=== PATIENT | female | born 1975 | race Caucasian/White ===

== ENCOUNTER 2020-09-23 15:51 | Emergency (ER) | payer OTHER, SELFPAY ==
--- NOTE | ~2020-09-23 | XR_ITS ---
EXAMINATION: XR chest 2V DATE: 09/23/2020 16:30 INDICATION: 2 days of cough TECHNIQUE: frontal and lateral views of the chest were obtained. COMPARISON: None FINDINGS: There are at least 3 small calcified nodules in the left lung consistent with old granulomatous disea se. No other airspace opacities, pulmonary edema, pleural effusion or pneumothorax. The cardiomediast inal silhouette is normal. Visualized bones and soft tissues are unremarkable. IMPRESSION: 1. No acute cardiopulmonary disease. Reviewed, dictated and finalized at location A. [employer]
[2020-09-23 16:00] VITALS: BP 150/99; PULSE 109; RESP 18; TEMP 37.8; O2SAT 99
--- NOTE | 2020-09-23 16:12 | ED.URI ---
HPI - URI/Sore Throat General Chief Complaint: Upper Respiratory Infection Stated Complaint: chest cold Time Seen by Provider: 09/23/20 16:12 Source: patient Mode of arrival: ambulatory Limitations: no limitations History of Present Illness HPI Narrative: Esha Cliare is a 45 yo female with a PMH of tobacco abuse who comes to [facility] with complaints of productive cough fever chest pain that has been going on for the last 2 to 3 days. She took something for her fever at 11 this morning and is currently 100.1, blood pressure is elevated and she is not being treated for hypertension at this point, she says she is unable to lay down to sleep and coughs most of the time when she is sitting. She feels exhausted. She states there is no chance of Covid exposure for her as she stays with her parents and they have been isolating Related Data Allergies Allergy/AdvReac Type Severity Reaction Status Date / Time No Known Allergies Allergy Verified 09/23/20 16:16 Review of Systems Review of Systems: Narrative: CONSTITUTIONAL: Denies fever, chills, sweats. EYES: Denies visual changes, redness, discharge. ENT: Has rhinorrhea, has congestion, sore throat, otalgia. CARDIOVASCULAR: Denies chest pain, palpitations, edema. RESPIRATORY: Has dyspnea, wheezing, has cough GASTROINTESTINAL: Denies abdominal pain, nausea, vomiting, diarrhea. GENITOURINARY: Denies dysuria, hematuria, abnormal discharge SKIN: Denies rash or itching. NEUROLOGIC: Denies numbness, or focal weakness. PSYCHIATRIC: Denies anxiety or depression. [facility] Past Medical History Medical History No acute medical problems Surgical History Surgical History History of Family History Family History Other Hypertension Social History Social History Smoking packs per day: 0.5 Smoking cigarettes per day: 10.0 Years smoked: 26 Smoking pack-years: 13.00 Smoking status: Current every day smoker Tobacco type: cigarettes Comments At time of signature, I agree with nursing past medical, surgical, social and family history. There is no relevant family history pertinent to the presenting complaint. Exam Narrative: Exam Narrative: GENERAL: This is a well-nourished, well-developed patient, in moderate distress. HEAD: normocephalic, atraumatic. EYES: Sclera clear/white. Vision is grossly intact. EARS: External ears normal, auditory canals erythematous and without drainage, TMs have fluid behind them without perforation. Hearing grossly intact. NOSE: External nose normal without nasal discharge, nares with redness, has rhinorrhea. THROAT: Mucous membranes moist, posterior pharynx erythematous appears to have a large amount of drainage in the back of the throat NECK: Neck supple, CARDIOVASCULAR: Tachycardic rate and rhythm without murmurs, gallops, or rubs. RESPIRATORY: Coarse to auscultation. Breath sounds equal bilaterally. No wheezes, rales, or rhonchi. Wheezy cough GASTROINTESTINAL: Abdomen soft, , SKIN: warm, intact with no suspicious lesions or rash, good texture and turgor. NEURO: awake, alert, and oriented to person, place and time. There were no obvious focal neurologic abnormalities. Steady gait EXTREMITIES: Normal range of motion. BACK: Nontender without deformity Course Course Emergency Course: Patient came to express care complaining of 4 days of sinus drainage productive cough fever Strep negative, flu negative , chest [id number] no acute cardiopulmonary disease Reevaluation(s) Date: 09/23/20 Time: 16:27 Reevaluation #2: Patient continues to have productive cough with wheezing will start on steroids,albuterol, antibiotic Vital Signs Vital signs: Vital Signs Temperature 100.1 F H 09/23/20 16:00 Pulse Rate
== END 2020-09-23 17:22 | disposition home or self-care (01) ==
PROVIDERS: Emergency Provider Nurse Practitioner
DX: J40 Bronchitis, not specified as acute or chronic (principal); F17.210 Nicotine dependence, cigarettes, uncomplicated
CPT/HCPCS: 71046; 87081; 87804; 87880; 99213; G0463

== ENCOUNTER 2021-02-06 15:04 | Emergency (ER) | payer OTHER, SELFPAY ==
[2021-02-06 15:09] VITALS: BP 148/82; PULSE 124; RESP 16; TEMP 36.7; O2SAT 96
--- NOTE | 2021-02-06 15:12 | ED.URI ---
HPI - URI/Sore Throat General Chief Complaint: Upper Respiratory Infection Stated Complaint: Congestion Time Seen by Provider: 02/06/21 15:12 Source: patient and RN notes reviewed History of Present Illness HPI Narrative: Patient is a 45-year-old female who presents the urgent care with complaints of productive cough, mild chest congestion, left ear pain and low-grade fever. Patient states that started yesterday and the temperature was earlier this morning. Patient has taken ibuprofen and does use inhalers as needed for the cough. Patient states that she has a history of bronchitis and is a pack-a-day smoker. Patient denies of any known exposure to Covid. No other acute complaints. No acute distress noted. Patient aware of the plan of care. Some parts of this dictation were generated by voice recognition software and may contain typographical and/or grammatical inaccuracies. Related Data Allergies Allergy/AdvReac Type Severity Reaction Status Date / Time codeine Allergy Hives Verified 02/06/21 15:18 naproxen [From Aleve] Allergy Hives Verified 02/06/21 15:18 Review of Systems Review of Systems: Narrative: CONSTITUTIONAL: Denies fever, chills, or sweats. EYES: Denies visual changes, redness, or discharge. ENT: Reports of left otalgia, rhinorrhea CARDIOVASCULAR: Denies chest pain, palpitations, or edema. RESPIRATORY: Reports productive cough and chest congestion without dyspnea GASTROINTESTINAL: Denies abdominal pain, nausea, vomiting, or diarrhea. GENITOURINARY: Denies dysuria or hematuria. SKIN: Denies rash or itching. MUSCULOSKELETAL: Denies back pain, joint pain, or myalgia. NEUROLOGIC: Denies headache, numbness, or weakness. All other systems reviewed are negative, except as documented in HPI. REPLACED BY [facility] Past Medical History Medical History No acute medical problems Surgical History Surgical History History of Family History Family History Other Hypertension Social History Social History Smoking packs per day: 0.5 Smoking cigarettes per day: 10.0 Years smoked: 26 Smoking pack-years: 13.00 Smoking status: Current every day smoker Tobacco type: cigarettes Comments At the time of my signature, I reviewed and agree with the nursing past medical, surgical, social, and family history. There is no relevant family history pertinent to the patient complaint. Exam Narrative: Exam Narrative: GENERAL: This is a well-nourished, well-developed patient, in no apparent distress. HEAD: normocephalic, atraumatic. EYES: PERRL. Sclera clear/white. Vision is grossly intact. EARS: External ears normal, auditory canals clear and without drainage, mild fluid noted behind left TM without otitis, TMs normal without perforation. Hearing grossly intact. NOSE: External nose normal with no obvious nasal discharge, nares without redness, no rhinorrhea. THROAT: Mucous membranes moist, posterior pharynx clear. Moderate postnasal drainage NECK: Neck supple, non-tender without lymphadenopathy, masses or thyromegaly. CARDIOVASCULAR: Regular rate and rhythm without murmurs, gallops, or rubs. RESPIRATORY: Mild expiratory wheezes, cleared with cough. Breath sounds equal bilaterally. SKIN: warm, intact with no suspicious lesions or rash, good texture and turgor. NEURO: awake, alert, and oriented to person, place and time. There were no obvious focal neurologic abnormalities. EXTREMITIES: No clubbing, cyanosis, or edema. Course Vital Signs Vital signs: Vital Signs Temperature 98.1 F 02/06/21 15:09 Pulse Rate 124 H 02/06/21 15:09 Respiratory Rate 16 02/06/21 15:09 Blood Pressure 148/82 H 02/06/21 15:09 Pulse Oximetry 96 02/06/21 15:09 Temperature 98.1 F 02/06/21 15:09 Pulse Rate 124 H
== END 2021-02-06 15:34 | disposition home or self-care (01) ==
PROVIDERS: Emergency Provider Nurse Practitioner Family
DX: J40 Bronchitis, not specified as acute or chronic (principal); F17.210 Nicotine dependence, cigarettes, uncomplicated
CPT/HCPCS: 99213; G0463

== ENCOUNTER 2021-09-20 13:55 | Emergency (ER) | payer OTHER, SELFPAY ==
[2021-09-20 14:19] VITALS: BP 131/80; PULSE 109; RESP 16; TEMP 37; O2SAT 96
--- NOTE | 2021-09-20 15:37 | ED.URI ---
HPI - URI/Sore Throat General Chief Complaint: Upper Respiratory Infection Stated Complaint: chest congestion cough Time Seen by Provider: 09/20/21 15:37 Source: patient and RN notes reviewed Mode of arrival: ambulatory Limitations: no limitations History of Present Illness HPI Narrative: 46-year-old female who presents to [facility] care with complaints of sinus pain and pressure,sore throat, headache, cough, ear pressure with cough with upper chest burning for the past 2 days. Patient states that she has been COVID and flu vaccinated with no feelings of chills sweats or body aches or any acute dyspnea. Patient has been taking Tylenol for her symptoms.Patient describes burning in upper chest especially with cough rates discomfort as 7/10.Patient has long history of tobacco abuse. Related Data Allergies Allergy/AdvReac Type Severity Reaction Status Date / Time azithromycin [From Zithromax] Allergy Intermediate Hives Verified 09/20/21 14:45 codeine Allergy Intermediate Hives Verified 09/20/21 14:45 naproxen [From Aleve] Allergy Intermediate Hives Verified 09/20/21 14:45 Review of Systems Review of Systems: CONSTITUTIONAL: Denies fever, chills, or sweats. EYES: Denies visual changes, redness, or discharge. ENT: positive for rhinorrhea, congestion, sore throat, ear pressure CARDIOVASCULAR: Denies chest pain, palpitations, or edema. RESPIRATORY: positive cough with upper chest burning denies dyspnea. GASTROINTESTINAL: Denies abdominal pain, nausea, vomiting, or diarrhea. GENITOURINARY: Denies dysuria or hematuria. SKIN: Denies rash or itching. MUSCULOSKELETAL: Denies back pain, joint pain, or myalgia. NEUROLOGIC: Positive headache, no numbness, or weakness. PSYCHIATRIC: Denies anxiety or depression. All systems reviewed & are unremarkable except as noted in HPI and below PMFSH Past Medical History Medical History (Updated 09/22/21 @ 14:09 by Yeimy Gillette NP) Bronchitis Pneumonia Surgical History Surgical History History of Family History Family History Other Hypertension Social History Social History Smoking packs per day: 0.5 Smoking cigarettes per day: 10.0 Years smoked: 26 Smoking pack-years: 13.00 Smoking status: Current every day smoker Tobacco type: cigarettes Comments At time of signature, agree with nursing past medical, surgical, social and family history. There is no relevant family history pertinent to the presenting complaint Exam Narrative: GENERAL: Well-appearing, well-nourished, and in no acute distress. HEAD: Normocephalic, atraumatic. EYES: PERRLA and EOMI. ENT: Nares patent with clear rhinorrhea no epistaxis. Mucous membranes moist. TMs normal with good light reflex, throat mild red with no lesions or exudates, no tonsil enlargement with post nasal drainage. NECK: Supple.no lymphadenopathy CHEST: Clear to auscultation. No respiratory distress,.productive cough, SAO2 96% on room air HEART: Regular rate and rhythm. No murmur heard. Normal peripheral pulses. ABDOMEN: Soft, nontender, nondistended, normal active bowel sounds. EXTREMITIES: Normal range of motion. No edema. SKIN: Warm, dry, no rash. NEURO: No focal deficits. Alert and oriented x3. Course Vital Signs Vital signs: Vital Signs Temperature 37.0 C 09/20/21 14:19 Pulse Rate 109 H 09/20/21 14:19 Respiratory Rate 16 09/20/21 14:19 Blood Pressure 131/80 09/20/21 14:19 Pulse Oximetry 96 09/20/21 14:19 Temperature 37.0 C 09/20/21 14:19 Pulse Rate 109 H 09/20/21 14:19 Respiratory Rate 16 09/20/21 14:19 Blood Pressure 131/80 09/20/21 14:19 Pulse Oximetry 96 09/20/21 14:19 MDM - URI/Sore Throat Differential Diagnosis Differential diagnosis: Likely upper respiratory infection, sinusitis, bronchitis and other (acute c
== END 2021-09-20 15:55 | disposition home or self-care (01) ==
PROVIDERS: Emergency Provider Registered Nurse; PCP Nurse Practitioner Family
DX: J06.9 Acute upper respiratory infection, unspecified (principal); F17.210 Nicotine dependence, cigarettes, uncomplicated
CPT/HCPCS: 99213; G0463

== ENCOUNTER 2022-03-10 08:01 | Emergency (ER) | payer OTHER, SELFPAY ==
--- NOTE | 2022-03-10 08:04 | ED.URI ---
HPI - URI/Sore Throat General Chief Complaint: Upper Respiratory Infection Stated Complaint: Congestion/Cough Time Seen by Provider: 03/10/22 08:04 Source: patient and RN notes reviewed History of Present Illness HPI Narrative: Patient is a 46-year-old female who presents the urgent care with complaints of cough and congestion. Patient states her cough has been productive in the mornings. Patient denies of any ill exposures. States that she has been running a temperature of 99 and has been taking Tylenol and a daily allergy medication. Denies of any shortness of breath, chest pain, nausea or vomiting. No other acute complaints. No acute distress noted. Patient aware of the plan of care. Some parts of this dictation were generated by voice recognition software and may contain typographical and/or grammatical inaccuracies. Related Data Allergies Allergy/AdvReac Type Severity Reaction Status Date / Time azithromycin [From Zithromax] Allergy Intermediate Hives Verified 03/10/22 08:12 codeine Allergy Intermediate Hives Verified 03/10/22 08:12 naproxen [From Aleve] Allergy Intermediate Hives Verified 03/10/22 08:12 Review of Systems Review of Systems: CONSTITUTIONAL: Denies fever, chills, or sweats. EYES: Denies visual changes, redness, or discharge. ENT: Denies rhinorrhea, congestion, sore throat, or otalgia. CARDIOVASCULAR: Denies chest pain, palpitations, or edema. RESPIRATORY: Reports a productive cough and chest congestion without dyspnea GASTROINTESTINAL: Denies abdominal pain, nausea, vomiting, or diarrhea. GENITOURINARY: Denies dysuria or hematuria. SKIN: Denies rash or itching. MUSCULOSKELETAL: Denies back pain, joint pain, or myalgia. NEUROLOGIC: Denies headache, numbness, or weakness. All other systems reviewed are negative, except as documented in HPI. [facility] Past Medical History Medical History (Updated 03/10/22 @ 08:29 by GARY Momin) Bronchitis Pneumonia Surgical History Surgical History History of Family History Family History Other Hypertension Social History Social History Smoking packs per day: 0.5 Smoking cigarettes per day: 10.0 Years smoked: 26 Smoking pack-years: 13.00 Smoking status: Current every day smoker Tobacco type: cigarettes Comments At the time of my signature, I reviewed and agree with the nursing past medical, surgical, social, and family history. There is no relevant family history pertinent to the patient complaint. Exam Narrative: GENERAL: This is a well-nourished, well-developed patient, in no apparent distress. HEAD: normocephalic, atraumatic. EYES: PERRL. Sclera clear/white. Vision is grossly intact. EARS: External ears normal, auditory canals clear and without drainage, TMs normal without perforation. Hearing grossly intact. NOSE: External nose normal with no obvious nasal discharge, nares without redness, clear rhinorrhea. THROAT: Mucous membranes moist, posterior pharynx clear. Moderate postnasal drainage NECK: Neck supple CARDIOVASCULAR: Regular rate and rhythm without murmurs, gallops, or rubs. RESPIRATORY: Clear to auscultation. Breath sounds equal bilaterally. No wheezes, rales, or rhonchi. SKIN: warm, intact with no suspicious lesions or rash, good texture and turgor. NEURO: awake, alert, and oriented to person, place and time. There were no obvious focal neurologic abnormalities. EXTREMITIES: No clubbing, cyanosis, or edema. Course Course Level of Care: Express Care Visit Vital Signs Vital signs: Vital Signs Temperature 98.9 F 03/10/22 08:06 Pulse Rate 118 H 03/10/22 08:06 Respiratory Rate 20 03/10/22 08:06 Blood Pressure 176/85 H 03/10/22 08:06 Pulse Oximetry 98 03/10/22 08:06 Temperature 98.9 F 03/10/22 08:16 Pulse Rate 118 H 03/10
[2022-03-10 08:06] VITALS: BP 176/85; PULSE 118; RESP 20; TEMP 37.2; O2SAT 98
[2022-03-10 08:16] VITALS: BP 176/85; PULSE 118; RESP 20; TEMP 37.2; O2SAT 98
== END 2022-03-10 08:41 | disposition home or self-care (01) ==
PROVIDERS: Emergency Provider Nurse Practitioner Family
DX: J06.9 Acute upper respiratory infection, unspecified (principal); F17.210 Nicotine dependence, cigarettes, uncomplicated
CPT/HCPCS: 99211; G0463

== ENCOUNTER 2022-08-21 08:02 | Emergency (ER) | payer OTHER, SELFPAY ==
--- NOTE | 2022-08-21 08:07 | ED.URI ---
HPI - URI/Sore Throat General Chief Complaint: Upper Respiratory Infection Stated Complaint: Congestion/Fever Time Seen by Provider: 08/21/22 08:25 Source: patient and RN notes reviewed Mode of arrival: ambulatory Limitations: no limitations History of Present Illness HPI Narrative: 47-year-old female presents with concern for chills and body aches, headache, cough, fevers, chest and nasal congestion. She reports she had, test that negative yesterday. MD elicited complaint: cough and sore throat Related Data Allergies Allergy/AdvReac Type Severity Reaction Status Date / Time azithromycin [From Zithromax] Allergy Intermediate Hives Verified 03/10/22 08:12 codeine Allergy Intermediate Hives Verified 03/10/22 08:12 naproxen [From Aleve] Allergy Intermediate Hives Verified 03/10/22 08:12 Review of Systems Review of Systems: CONSTITUTIONAL: Reports malaise, chills, sweats, fever. EYES: Denies visual changes, redness, or discharge. ENT: Reports rhinorrhea, congestion. Denies sinus pain, otalgia and sore throat. CARDIOVASCULAR: Denies chest pain, palpitations, or edema. RESPIRATORY: Reports cough and chest congestion. Denies dyspnea. GASTROINTESTINAL: Denies abdominal pain, nausea, vomiting, diarrhea SKIN: Denies rash or itching. MUSCULOSKELETAL: Reports myalgia. NEUROLOGIC: Reports headache. All systems reviewed & are unremarkable except as noted in HPI and below PMFSH Past Medical History Medical History (Updated 08/21/22 @ 08:36 by Carito Velasquez NP) Bronchitis Pneumonia Surgical History Surgical History History of Family History Family History Other Hypertension Social History Social History Smoking packs per day: 0.5 Smoking cigarettes per day: 10.0 Years smoked: 26 Smoking pack-years: 13.00 Smoking status: Current every day smoker Tobacco type: cigarettes Comments At time of signature, agree with nursing past medical, surgical, social and family history. There is no relevant family history pertinent to the presenting complaint Exam Narrative: GENERAL: Nontoxic appearing, And in no acute distress. HEAD: Normocephalic EYES: PERRLA, conjunctivae clear ENT: Nares clear, turbinates edematous and erythematous, clear discharge. Mucous membranes moist. TM pearly foster with dull light reflex bilaterally; no tragal tenderness. Oropharynx not erythematous without lesions. Tonsils not enlarged and without exudate, no drooling, no hoarseness, no trismus, uvula midline. NECK: Supple. No lymphadenopathy CHEST: Clear to auscultation, breath sounds equal. No wheezing, rhonchi, rales, or stridor. No respiratory distress, speaks in full sentences. Cough noted HEART: Regular rate and rhythm. No murmur heard. SKIN: Warm, dry, no rash. NEURO: Alert and oriented x3. PSYCH: Normal mood and affect Course Course Emergency Course: Patient is aware of diagnosis, understands and agrees to treatment plan. Anticipatory guidance given. Patient agrees to follow-up as directed and is aware of reasons to seek care at the emergency department. Portions of this record may have been created with voice recognition software Level of Care: Express Care Visit Vital Signs Vital signs: Vital Signs Pulse Rate 119 H 08/21/22 08:11 Respiratory Rate 14 08/21/22 08:11 Blood Pressure 157/85 H 08/21/22 08:11 Pulse Oximetry 96 08/21/22 08:11 Oxygen Delivery Room Air 08/21/22 08:11 Pulse Rate 119 H 08/21/22 08:16 Respiratory Rate 14 08/21/22 08:16 Blood Pressure 157/85 H 08/21/22 08:16 Pulse Oximetry 96 08/21/22 08:16 Oxygen Delivery Room Air 08/21/22 08:16 Reviewed. MDM - URI/Sore Throat MDM Narrative Medical decision making narrative: Differential diagnosis considered: [place] virus, strep pharyngitis, allergic rhi
[2022-08-21 08:11] VITALS: BP 157/85; PULSE 119; RESP 14; O2SAT 96
[2022-08-21 08:16] VITALS: BP 157/85; PULSE 119; RESP 14; O2SAT 96
== END 2022-08-21 08:45 | disposition home or self-care (01) ==
PROVIDERS: Emergency Provider Nurse Practitioner
DX: J10.1 Influenza due to other identified influenza virus with other respiratory manifestations (principal); Z20.822 Contact with and (suspected) exposure to COVID-19; F17.219 Nicotine dependence, cigarettes, with unspecified nicotine-induced disorders
CPT/HCPCS: 87426; 87804; 99213; C9803; G0463

== ENCOUNTER 2023-03-04 08:03 | Emergency (ER) | payer OTHER, SELFPAY ==
--- NOTE | 2023-03-04 08:11 | ED.DENTAL ---
HPI - Dental/Oral General Chief complaint: Dental/Oral Stated complaint: Facial Swelling Time Seen by Provider: 03/04/23 08:11 Source: patient Mode of arrival: ambulatory Limitations: no limitations History of Present Illness HPI Narrative: 47-year-old female presents with complaint of left upper dental pain for 4 days. Reports facial swelling for 3 days. Afebrile. Reports that she is trying to make an appointment with [facility] but they have not called her back. Taking ibuprofen for pain. No other complaints today. All systems reviewed and negative except as above. Related Data Allergies Allergy/AdvReac Type Severity Reaction Status Date / Time azithromycin [From Zithromax] Allergy Intermediate Hives Verified 03/04/23 08:16 codeine Allergy Intermediate Hives Verified 03/04/23 08:16 naproxen [From Aleve] Allergy Intermediate Hives Verified 03/04/23 08:16 Review of Systems Review of Systems: CONSTITUTIONAL: Denies fever, chills, or sweats. EYES: Denies visual changes, redness, or discharge. ENT: Denies rhinorrhea, congestion, sore throat, or otalgia. Reports left upper dental pain. CARDIOVASCULAR: Denies chest pain, palpitations, or edema. RESPIRATORY: Denies cough or dyspnea. GASTROINTESTINAL: Denies abdominal pain, nausea, vomiting, or diarrhea. GENITOURINARY: Denies dysuria or hematuria. SKIN: Denies rash or itching. MUSCULOSKELETAL: Denies back pain, joint pain, or myalgia. NEUROLOGIC: Denies headache, numbness, or weakness. PSYCHIATRIC: Denies anxiety or depression. All other systems reviewed are negative, except as documented in HPI. [facility] Past Medical History Medical History (Updated 03/04/23 @ 08:18 by Katherine Bee NP) Bronchitis Pneumonia Surgical History Surgical History History of Family History Family History Other Hypertension Social History Social History Smoking packs per day: 0.5 Smoking cigarettes per day: 10.0 Years smoked: 26 Smoking pack-years: 13.00 Smoking status: Current every day smoker Tobacco type: cigarettes Comments At time of signature, agree with nursing past medical, surgical, social and family history. There is no relevant family history pertinent to the presenting complaint. Exam Narrative: GENERAL: This is a well-nourished, well-developed patient, in no apparent distress. HEAD: normocephalic, atraumatic. EYES: PERRL. Sclera clear/white. Vision is grossly intact. EARS: External ears normal NOSE: External nose normal MOUTH: swelling and tenderness to L upper gum, tooth #14 which has a crown. poor dentition. multiple missing teeth. other teeth decayed and broken down to gumline. NECK: Neck supple, non-tender without lymphadenopathy, masses or thyromegaly. CARDIOVASCULAR: Regular rate and rhythm without murmurs, gallops, or rubs. RESPIRATORY: Clear to auscultation. Breath sounds equal bilaterally. No wheezes, rales, or rhonchi. SKIN: warm, Dry, intact with no suspicious lesions or rash, good texture and turgor. NEURO: awake, alert, and oriented to person, place and time. There were no obvious focal neurologic abnormalities. EXTREMITIES: No joint tenderness, effusion, or edema noted. Course Course Level of Care: Express Care Visit Vital Signs Vital signs: Vital Signs Temperature 35.5 C L 03/04/23 08:12 Pulse Rate 81 03/04/23 08:12 Respiratory Rate 16 03/04/23 08:12 Blood Pressure 151/100 H 03/04/23 08:12 Pulse Oximetry 96 03/04/23 08:12 Oxygen Delivery Room Air 03/04/23 08:12 Temperature 35.5 C L 03/04/23 08:12 Pulse Rate 81 03/04/23 08:12 Respiratory Rate 16 03/04/23 08:12 Blood Pressure 151/100 H 03/04/23 08:12 Pulse Oximetry 96 03/04/23 08:12 Oxygen Delivery Room Air 03/04/23 08:12 reviewed
[2023-03-04 08:12] VITALS: BP 151/100; PULSE 81; RESP 16; TEMP 35.5; O2SAT 96
== END 2023-03-04 08:20 | disposition home or self-care (01) ==
PROVIDERS: Emergency Provider Nurse Practitioner Family
DX: K04.7 Periapical abscess without sinus (principal); F17.210 Nicotine dependence, cigarettes, uncomplicated
CPT/HCPCS: 99213; G0463

== ENCOUNTER 2024-02-14 09:54 | Emergency (ER) | payer MEDICAID, SELFPAY ==
[2024-02-14 09:58] VITALS: BP 177/84; PULSE 87; RESP 16; TEMP 36.2; O2SAT 97
--- NOTE | 2024-02-14 09:59 | ED.DENTAL ---
HPI - Dental/Oral General Chief complaint: Dental/Oral Stated complaint: Toothache History of Present Illness HPI Narrative: NO FEVER. NO JAW SWELLING. NO NECK SWELLING. NO LIMITATION WITH SPEAKING OR SWALLOWING. HAS A HISTORY OF DENTAL CARIES. HAS NOT SEEN A DENTIST RECENTLY. Related Data Home Medications Medication Instructions Recorded Confirmed atorvastatin 40 mg tablet mg 02/14/24 losartan 25 mg tablet mg 02/14/24 Allergies Allergy/AdvReac Type Severity Reaction Status Date / Time azithromycin [From Zithromax] Allergy Intermediate Hives Verified 03/04/23 08:16 codeine Allergy Intermediate Hives Verified 03/04/23 08:16 naproxen [From Aleve] Allergy Intermediate Hives Verified 03/04/23 08:16 Review of Systems Review of Systems: CONSTITUTIONAL: Denies fever, chills, or sweats. EYES: Denies visual changes, redness, or discharge. ENT: Denies rhinorrhea, congestion, sore throat, or otalgia. NO FEVER. NO JAW SWELLING. NO NECK SWELLING. NO LIMITATION WITH SPEAKING OR SWALLOWING. HAS A HISTORY OF DENTAL CARIES. HAS NOT SEEN A DENTIST RECENTLY. CARDIOVASCULAR: Denies chest pain, palpitations, or edema. RESPIRATORY: Denies cough or dyspnea. GASTROINTESTINAL: Denies abdominal pain, nausea, vomiting, or diarrhea. GENITOURINARY: Denies dysuria or hematuria. SKIN: Denies rash or itching. MUSCULOSKELETAL: Denies back pain, joint pain, or myalgia. NEUROLOGIC: Denies headache, numbness, or weakness. PSYCHIATRIC: Denies anxiety or depression. FOR[facility]LY [facility] Past Medical History Medical History (Updated 02/14/24 @ 10:06 by GARY Rosales) Bronchitis Pneumonia Surgical History Surgical History History of Family History Family History Other Hypertension Social History Social History Smoking packs per day: 0.5 Smoking cigarettes per day: 10.0 Years smoked: 26 Smoking pack-years: 13.00 Smoking status: Current every day smoker Tobacco type: cigarettes Comments At time of signature, agree with nursing past medical, surgical, social and family history. There is no relevant family history pertinent to the presenting complaint Exam Narrative: NO REAGAN APICAL SWELLING, TOOTH TENDER TO PALPATION. NO FACIAL SWELLING. NO TRISMUS. ABLE TO OPEN MOUTH FULLY. NO NECK SWELLING OR SUSHMA'S ANGINA. NO ABSCESS TO BE DRAINED. Left lower tooth # 19 no drooling, trismus, facial asymmetry or significant neck swelling GENERAL: Well-appearing, well-nourished, and in no acute distress. HEAD: Normocephalic, atraumatic. EYES: PERRLA and EOMI. ENT: Nares clear, no rhinorrhea or epistaxis. Mucous membranes moist. NECK: Supple. CHEST: Clear to auscultation. No respiratory distress. HEART: Regular rate and rhythm. No murmur heard. Normal peripheral pulses. ABDOMEN: Soft, nontender, nondistended, normal active bowel sounds. EXTREMITIES: Normal range of motion. No edema. SKIN: Warm, dry, no rash. NEURO: No focal deficits. Alert and oriented x3. [place] Coma Scale Eye Opening: Spontaneous 4 [place] Coma Scale Motor: Obeys Commands 6 Surinder Coma Scale Verbal: Oriented 5 [place] Coma Scale Total 15 Course Course Level of Care: Express Care Visit Vital Signs Vital signs: Please CARLOS schedule a followup visit with your personal physician for further evaluation and treatment. Including recheck and discussion of your blood pressure. If your symptoms persist, change or worsen significantly before you can contact your personal physician then please, without delay, go to the emergency department for further evaluation Discharge Plan Discharge Clinical Impression: Toothache, Dental caries, Dental abscess, Gingivitis Patient Disposition: Home, Self-Care Condition: Stable Instructions: Antibiotic Form Additional Instructions: Avoid
== END 2024-02-14 10:10 | disposition home or self-care (01) ==
PROVIDERS: Emergency Provider Nurse Practitioner Family; PCP Family Medicine
DX: K02.9 Dental caries, unspecified (principal); K04.7 Periapical abscess without sinus; K05.10 Chronic gingivitis, plaque induced; F17.210 Nicotine dependence, cigarettes, uncomplicated
CPT/HCPCS: 99213; G0463

== ENCOUNTER 2024-07-16 14:11 | Emergency (ER) | payer OTHER, SELFPAY ==
[2024-07-16 14:16] VITALS: BP 164/78; PULSE 94; RESP 16; TEMP 36.6; O2SAT 95
--- NOTE | 2024-07-16 14:24 | ED.URI ---
HPI - URI/Sore Throat General Chief Complaint: Upper Respiratory Infection Stated Complaint: Chest Congestion/Cough Time Seen by Provider: 07/16/24 14:24 Source: patient, RN notes reviewed and old records reviewed Mode of arrival: ambulatory Limitations: no limitations History of Present Illness HPI Narrative: 49 year old female who presents to [facility] care with complaints of 2 day history of productive cough which evans in her chest. Patient reports that her cough has increased and she is now expectorating some greenish mucous. Patient reports history of tobacco abuse of 20 years at 1 pack per day and past history of bronchitis.Patient reports that she as been taking Gabbie D and Tussin cough medication. MD elicited complaint: cough and other (burning in chest ) Pertinent past history: other (tobacco abuse and bronchitis) Onset (ago): day(s) (2) Severity: moderate Pain scale (0-10): 5 Description of mucous: clear and green Able to tolerate fluids by mouth: Yes Treatments prior to arrival: other (Gabbie D and Tussin Cough syrup) Related Data Home Medications Medication Instructions Recorded Confirmed atorvastatin 40 mg tablet mg 02/14/24 rosuvastatin 20 mg tablet mg 07/16/24 Allergies Allergy/AdvReac Type Severity Reaction Status Date / Time azithromycin [From Zithromax] Allergy Intermediate Hives Verified 07/16/24 14:17 codeine Allergy Intermediate Hives Verified 07/16/24 14:17 naproxen [From Aleve] Allergy Intermediate Hives Verified 07/16/24 14:17 Review of Systems Review of Systems: CONSTITUTIONAL: Denies malaise, chills, sweats, or fever. EYES: Denies visual changes, redness, or discharge. ENT: Reports rhinorrhea, congestion, sinus pain,no otalgia and no sore throat. CARDIOVASCULAR: Denies chest pain, palpitations, or edema.burning in chest with cough RESPIRATORY: Reports productive cough.? Denies acute dyspnea. GASTROINTESTINAL: Denies abdominal pain, nausea, vomiting, diarrhea SKIN: Denies rash or itching. MUSCULOSKELETAL: Denies myalgia. NEUROLOGIC: Denies headache. All systems reviewed & are unremarkable except as noted in HPI and below PMFSH Past Medical History Medical History (Updated 07/17/24 @ 08:14 by Yeimy Gillette NP) Bronchitis Hyperlipidemia Hypertension Pneumonia Surgical History Surgical History (Updated 07/17/24 @ 08:14 by Yeimy Gillette NP) H/O tubal ligation History of x3 Family History Family History Other Hypertension Social History Social History (Updated 07/17/24 @ 08:15 by Yeimy Gillette NP) Smoking packs per day: 0.5 Smoking cigarettes per day: 10.0 Years smoked: 26 Smoking pack-years: 13.00 Smoking status: Current every day smoker Tobacco type: cigarettes Alcohol intake: never Substance use: never Living arrangements: with family Gender identity (if verbalized by the patient): Female Comments At time of signature, agree with nursing past medical, surgical, social and family history. There is no relevant family history pertinent to the presenting complaint Exam Narrative: GENERAL: Well-appearing, well-nourished, and in no acute distress. HEAD: Normocephalic EYES: PERRLA, conjunctivae clear ENT: Nares clear, turbinates edematous and erythematous, clear discharge, sinus pressure. Mucous membranes moist. TM pearly foster with dull light reflex bilaterally; no tragal tenderness. Oropharynx erythematous without lesions. Tonsils not enlarged and without exudate, no drooling, no hoarseness, no trismus, uvula midline.post nasal drainage NECK: Supple. No lymphadenopathy CHEST: Scattered wheezing, breath sounds equal. Positive for wheezing, rhonchi, rales, or stridor. No respiratory distress, speaks in full sentences.SAO2 95% HEART: Regular rate and rhythm. No murmur heard. SKIN: Warm, dry, no rash. NEURO: Alert and oriented x3. PSY
== END 2024-07-16 14:39 | disposition home or self-care (01) ==
PROVIDERS: Emergency Provider Registered Nurse; PCP Family Medicine
DX: J40 Bronchitis, not specified as acute or chronic (principal); F17.210 Nicotine dependence, cigarettes, uncomplicated; E78.5 Hyperlipidemia, unspecified; I10 Essential (primary) hypertension
CPT/HCPCS: 99213; G0463

== ENCOUNTER 2024-07-30 14:11 | Emergency (ER) | payer OTHER, SELFPAY ==
[2024-07-30 14:14] VITALS: BP 170/90; PULSE 80; RESP 16; TEMP 36.9; O2SAT 97
--- NOTE | 2024-07-30 14:35 | ED.DENTAL ---
HPI - Dental/Oral General Chief complaint: Dental/Oral Stated complaint: Toothache Source: patient Mode of arrival: ambulatory History of Present Illness HPI Narrative: 49 y/o female presented for c/o right upper dental pain. Onset yesterday. Reports mild right cheek swelling and tenderness. Endorses a history of poor dentition throughout and is pending a full extraction. Was seen at the dentist 07/27, did not have pain at that time. Taking tylenol and ibuprofen and using liquid pain relief. Denies n/v/d/f/c. Complaint: tooth pain Related Data Home Medications Medication Instructions Recorded Confirmed rosuvastatin 20 mg tablet mg 07/16/24 losartan 25 mg tablet mg 07/30/24 07/30/24 Allergies Allergy/AdvReac Type Severity Reaction Status Date / Time azithromycin [From Zithromax] Allergy Intermediate Hives Verified 07/30/24 14:15 codeine Allergy Intermediate Hives Verified 07/30/24 14:15 naproxen [From Aleve] Allergy Intermediate Hives Verified 07/30/24 14:15 Review of Systems Review of Systems: CONSTITUTIONAL: Denies body aches, fever, chills ENT: Denies rhinorrhea, congestion, sore throat, or otalgia. Reports dental pain CARDIOVASCULAR: Denies chest pain, palpitations RESPIRATORY: Denies cough or dyspnea. SKIN: Denies rash, itching, or wounds. MUSCULOSKELETAL: Denies myalgia. NEUROLOGIC: Denies headache, numbness, tingling, or weakness. PMFSH Past Medical History Medical History Bronchitis Hyperlipidemia Hypertension Pneumonia Surgical History Surgical History H/O tubal ligation History of x3 Family History Family History Other Hypertension Social History Social History Smoking packs per day: 0.5 Smoking cigarettes per day: 10.0 Years smoked: 26 Smoking pack-years: 13.00 Smoking status: Current every day smoker Tobacco type: cigarettes Alcohol intake: never Substance use: never Living arrangements: with family Gender identity (if verbalized by the patient): Female Comments At time of signature, I have reviewed and agree with nursing past medical, surgical, social and family history unless otherwise noted. Please see nursing chart for further information. There is no relevant family history pertinent to the presenting complaint Exam Narrative: GENERAL: Appears in pain; no acute distress. HEAD: Normocephalic, atraumatic. EYES: EOMI. No redness or drainage. Conjunctivae normal. ENT: Dental pain location of #7 surrounding gum erythema and swelling, white flat pustule. Minimal right cheek swelling, tender. Mucous membranes pink and moist. TMs normal bilaterally. Throat normal. no dysphagia, odynophagia, dysphonia, or dyspnea. No uvular deviation or soft palate edema. NECK: Normal AROM. No lymphadenopathy. no induration below mandible, no neck pain. CHEST: No respiratory distress. Clear to auscultation. HEART: Regular rate and rhythm. SKIN: Warm, dry, Normal skin turgor. NEURO: No focal deficits. Alert and oriented x3. Gait steady. Course Course Emergency Course: Patient is aware of diagnosis, understands and agrees to treatment plan. Anticipatory guidance given. Patient agrees to follow-up as directed and is aware of reasons to seek care at the emergency department. Portions of this record may have been created with voice recognition software Level of Care: Express Care Visit Vital Signs Vital signs: Vital Signs Temperature 98.5 F 07/30/24 14:14 Pulse Rate 80 07/30/24 14:14 Respiratory Rate 16 07/30/24 14:14 Blood Pressure 170/90 H 07/30/24 14:14 Pulse Oximetry 97 07/30/24 14:14 Oxygen Delivery Room Air 07/30/24 14:14 Temperature 98.5 F 07/30/24 14:14 Pulse Rate 80 07/30/24 14:14
== END 2024-07-30 14:42 | disposition home or self-care (01) ==
PROVIDERS: Emergency Provider Nurse Practitioner Family; PCP Family Medicine
DX: K04.7 Periapical abscess without sinus (principal); E78.5 Hyperlipidemia, unspecified; I10 Essential (primary) hypertension; F17.210 Nicotine dependence, cigarettes, uncomplicated; Z79.899 Other long term (current) drug therapy
CPT/HCPCS: 99213; G0463

== ENCOUNTER 2025-09-18 10:18 | Emergency (ER) | payer OTHER, SELFPAY ==
--- NOTE | ~2025-09-18 | XR_ITS ---
Examination: XR chest 2V Clinical History: cough Comparison: 07/24/2020 Technique: PA and Lateral Findings: Cardiomediastinal silhouette normal size and configuration. Lungs clear. No acute bony abnormality. IMPRESSION: 1. No acute cardiopulmonary findings. Reviewed, dictated and finalized at location R. RAL OFFICE OPERATOR
[2025-09-18 10:22] VITALS: BP 171/79; PULSE 93; RESP 20; TEMP 36.6; O2SAT 98
--- NOTE | 2025-09-18 11:06 | ED_ITS ---
HPI - General Adult General Chief complaint: Unspecified Stated complaint: Right Shoulder Pain/Cough/Vomiting Time Seen by Provider: 09/18/25 11:07 Source: patient, RN notes reviewed and old records reviewed Mode of arrival: ambulatory Limitations: no limitations History of Present Illness HPI narrative: 50 [facility] with complaints of having cough, sweats,sinus drainage, dizziness for a week and vomiting for the past 3 days. Patient reports that she awoke this morning having posterior right shoulder discomfort that radiates to front of shoulder and chest. Patient reports no kno wn injury to her shoulder. patient reports no increased pain with deep breathing or shoulder movement. Patient has history of bronchitis and pneumonia in the past and tobacco use.. MD complaint: cough, right shoulder discomfort, some vomiting, right shoulder pain Onset (ago): day(s) (3) Location: right and upper extremity (shoulder) Severity scale (1-10): 6 Quality: aching Treatments prior to arrival: NSAID and other (Tylenol) Related Data Home Medications ?Medication ?Instructions ?Recorded ?Confirmed ?Last Taken ?Type irbesartan 300 mg tablet mg 09/18/25 Unknown History Allergies Allergy/AdvReac Type Severity Reaction Status Date / Time azithromycin (From Zithromax) Allergy Intermediate Hives Verified 09/18/25 10:26 codeine Allergy Intermediate Hives Verified 09/18/25 10:26 naproxen (From Aleve) Allergy Intermediate Hives Verified 09/18/25 10:26 Review of Systems Review of Systems: CONSTITUTIONAL: States no known fever, chills, + sweats. EYES: Denies visual changes, redness, or discharge. ENT: Reports rhinorrhea, congestion, no sore throat, or otalgia. CARDIOVASCULAR: Denies chest pain, palpitations, or edema. RESPIRATORY: Reports dry cough denies any dyspnea. GASTROINTESTINAL: Denies abdominal pain, nausea, vomiting, or diarrhea. GENITOURINARY: Denies dysuria or hematuria. SKIN: Denies rash or itching. MUSCULOSKELETAL: Denies back pain, reports pain to the posterior right shoulder radiates to front of shoulder, chest wall. NEUROLOGIC: Denies headache, numbness, or weakness. PSYCHIATRIC: Reports history of anxiety or depression. All systems reviewed & are unremarkable except as noted in HPI and below PMFSH Past Medical History Medical History Hyperlipidemia Hypertension Pneumonia Bronchitis Surgical History Surgical History H/O tubal ligation History of x3 Family History Family History Other Hypertension Social History Social History Smoking packs per day: 0.5 Smoking cigarettes per day: 10.0 Years smoked: 26 Smoking pack-years: 13.00 Smoking status: Current every day smoker Tobacco type: cigarettes Alcohol intake: never Substance use: never Living arrangements: with family Gender identity (if verbalized by the patient): Female Comments At time of signature, agree with nursing past medical, surgical, social and family history. There is no relevant family history pertinent to the presenting complaint Exam Narrative: GENERAL: Well-appearing, well-nourished, and in no acute distress. HEAD: Normocephalic, atraumatic. EYES: PERRLA and EOMI. ENT: Nares clear, clear rhinorrhea no epistaxis. Mucous membranes moist,TM's normal with good light reflex, throat pink with no swelling NECK: Supple. no lymphadenopathy CHEST: Coarse lung sound to right upper lobe on auscultation. No respiratory distress.frequent cough productive at times yellowish mucous noted, SAO2 98% on room air HEART: Regular rate and rhythm. No murmur heard. Normal peripheral pulses. ABDOMEN: Soft, nontender, nondistended, normal active bowel sounds. EXTREMITIES: Normal range of motion. No edema.strong pulses to all extremities with no numbness or tingling to extremities voiced, right shoulder full ROM SKIN: Warm, dry, no rash. NEURO: No focal deficits. Alert and oriented x3. Course Course Emergency Course: Patient is aware of diagnosis, understands and agrees to treatment plan.? Antic ipatory guidance given.? Patient agrees to follow-up as directed and is aware of reasons to seek care at the emergency department. Portions of this record may have been created with voice recognition software Level of Care: Express Care Visit Vital Signs Vital signs: Vital Signs Temperature 36.6 C 09/18/25 10:22 Pulse Rate 93 09/18/25 10:22 Respiratory Rate 20 09/18/25 10:22 Blood Pressure 171/79 H 09/18/25 10:22 Pulse Oximetry 98 09/18/25 10:22 Oxygen Delivery Room Air 09/18/25 10:22 Temperature 36.6 C 09/18/25 10:22 Pulse Rate 93 09/18/25 10:22 Respiratory Rate 20 09/18/25 10:22 Blood Pressure 171/79 H 09/18/25 10:22 Pulse Oximetry 98 09/18/25 10:22 Oxygen Delivery Room Air 09/18/25 10:22 Reviewed Medical Decision Making MDM Narrative Medical decision making narrative: Exam findings and imaging show no acute concerns or changes; patient is non- toxic appearing and is in no distress.? Patient is appropriate for outpatient treatment and follow-up Differential Diagnosis Differential Diagnosis: URI, sinusitis, acute cough and congestion, bronchitis, pneumonia Medical Records Medical records reviewed: Yes I reviewed the external patient's medical records. Vital Signs Vital Signs: Vital Signs Temperature 36.6 C 09/18/25 10:22 Pulse Rate 93 09/18/25 10:22 Respiratory Rate 20 09/18/25 10:22 Blood Pressure 171/79 H 09/18/25 10:22 Pulse Oximetry 98 09/18/25 10:22 Oxygen Delivery Room Air 09/18/25 10:22 Temperature 36.6 C 09/18/25 10:22 Pulse Rate 93 09/18/25 10:22 Respiratory Rate 20 09/18/25 10:22 Blood Pressure 171/79 H 09/18/25 10:22 Pulse Oximetry 98 09/18/25 10:22 Oxygen Delivery Room Air 09/18/25 10:22 reviewed Imaging Data Attestation: I personally reviewed and interpreted this imaging study as follows: My impression: no acute cardiopulmonary findings Radiologist's impression: [facility] [place] [address] [place] [address] XRay Report Signed Patient: Esha Claire : 1975 MR#: [id number] Age: 50 Acct:[id number] Loc: [facility] ADM Date: 09/18/[address]: Ordering Physician: Yeimy Gillette APRN Date of Service: 09/18/25 Procedure(s): XR chest 2V Accession Number(s): [id number] cc: Fredy, Marija Aguillon MD; Yeimy Gillette APRN~ Examination: XR chest 2V Clinical History: cough Comparison: 07/24/2020 Technique: PA and Lateral Findings: Cardiomediastinal silhouette normal size and configuration. Lungs clear. No acute bony abnormality. IMPRESSION: 1. No acute cardiopulmonary findings. Reviewed, dictated and finalized at location R. PENDENT CONSULTANT Please be advised this is a medical document. It is intended for [id number] communication. It is written in medical language and may contain unfamiliar abbreviations or verbiage. Medical documents are intended to carry relevant information, facts as evident, and the clinical opinion of the practitioner at the time of the encounter. This report may have been done utilizing a voice recognition system. Attempts have been made to correct errors. However, there may be uncorrected grammatical, spelling, and recognition errors present. The file time of this note does not necessarily represent the time of service. Dictated By: Ashish Oro MD 09/18/25 1129 Signed By: <Electronically signed by Ashish Oro MD in OV> Critical Care Time Critical Care Time Critical Care Time: No Discharge Plan Discharge Clinical Impression: Acute cough URI (upper respiratory infection) Qualifiers: URI type: unspecified URI Qualified Code(s): J06.9 - Acute upper respiratory infection, unspecified Patient Disposition: Home Condition: Stable Instructions: Upper Respiratory Infection (ED), Acute Cough (ED) Additional Instructions: Increase fluids especially juices and water [id number] cough and cold medicine of your choice for your symptoms Zyrtec Claritin or Gabbie daily include Coricidin brand decongestant due to hypertension Continue your inhaler/nebulizer as directed Steroids as directed--take with food heat to the face 20-30 minutes 4-6 times a day for pain Salt water gargles, throat lozenges or throat sprays as desired Antibiotic as directed--finished the medication If your symptoms persist, change or worsen significantly before you can contact your personal physician then please, without delay, go to the emergency department for further evaluation. Follow-up with PCP in 7-10 days or sooner if needed Follow up with PCP soon in regards to your blood pressure which is elevated above threshold for referral. Blood pressure above 120/80 may indicate pre- hypertension. Patient Language: Yemeni Prescriptions: New prednisone 20 mg tablet 40 mg PO DAILY Qty: 10 0RF cephalexin 500 mg capsule 500 mg PO Q12H Qty: 21 0RF No Action albuterol sulfate 90 mcg/actuation HFA aerosol inhaler 2 puff inhalation QID PRN (Reason: shortness of breath or wheezing) Qty: 8.5 0RF irbesartan 300 mg tablet Follow-up/Referrals: Fredy,Marija Aguillon MD [Primary Care Provider, [facility]] Time of Disposition: 11:48 Quality [place] Coma Scale Eyes: Open Verbal: Oriented and Alert Motor: Follows Commands [place] Coma Total Score: 15
--- OUTSIDE RECORDS SUMMARY | 2025-09-18 11:35 | XMS_ITS | Clinical Summary ---
Author Organization [facility] Address [address] [place] [address] Care Team Providers Care Filament Tester Name Role Phone Paula Daniel MD Primary Care Provider Allergies Active Allergy Reactions Criticality Noted Date Comments Codeine Hives Medium 06/14/2019 Naproxen Hives Medium 06/14/2019 Medications predniSONE (DELTASONE) 20 mg tablet Take 20 mg by mouth 2 (two) times a day Active cholecalciferol (VITAMIN D-3) 50,000 unit capsule Take 50,000 Units by mouth once a week Active albuterol HFA (ProAir HFA) 90 mcg/actuation inhalerIndicati ons:Viral URI with cough Inhale 2 puffs every 4 (four) hours as needed for wheezing or shortness of breath 8.5 g Active Active Problems Problem Noted Date Diagnosed Date Screen for colon cancer 06/03/2023 Surgical History Surgery Date Site/Laterality Comments SECTION Medical History Medical History Date Comments No known health problems Family History Medical History Relation Name Comments Hypertension Father Diabetes type II Mother Hypertension Mother Relation Name Status Comments Father Alive Mother Alive Social History Tobacco Use Types Packs/Day Years Used Date Smoking Tobacco: Every Day Cigarettes Alcohol Use Standard Drinks/Week Comments Never 0 (1 standard drink = 0.6 oz pur e alcohol) AUDIT-C Answer Date Recorded Frequency of Alcohol Consumption Never 06/14/2019 Average Number of Drinks Not on file 019 Frequency of Binge Drinking Not on file 05/20 Personal Safety Answer Date Recorded Getting School Help Needed Not on file 12/13 Comments No Sex and Gender Information Value Date Recorded Sex Assigned at Not on file Legal Sex Female 5:08 PM [employer] Gender Identity Not on file Sexual Orientation Not on file Obstetrics History Para Term AB IAB SAB Ectopic Multiple Livin g Live Births 3 3 3 Date Outcome GA Total Labor Labor/2nd/3rd Weight Sex Type Anes PTL Debra A1 A5 Name Clin Term Term Term Last Filed Vital Signs Vital Sign Reading Time Taken Comments Blood Pressure 112/64 09/21/2021 2:54 PM [employer] Pulse 109 09/21/2021 2:54 PM [employer] Temperature 36.8 C (98.2 F) 09/21/2021 2:54 PM [employer] Respiratory Rate 14 09/21/2021 2:54 PM [employer] Oxygen Saturation 94% 09/21/2021 2:54 PM [employer] Inhaled Oxygen Concentration - - Weight 91.7 kg (202 lb 3.2 oz) 09/21/2021 2:54 P M [employer] Height 160 cm (5' 3) 09/21/2021 2:54 PM [employer] Body Mass Index 35.82 09/21/2021 2:54 PM [employer] Plan of Treatment Health Maintenance Due Date Last Done Comments Cervical Cancer Screening 1975 Colon Cancer Screening-Colonoscopy 1975 Depression Screening 1975 Hepatitis C Screening 1975 DTaP/Tdap/Td Vaccine (1 - Tdap) 1986 Hepatitis B Screening 1993 Regular Well Visit/Exam 18-64 1993 Pneumococcal vaccine <65 (1 of 2 - PCV) 1994 Breast Cancer Screening-Mammogram 06/17/2024 023 Covid-19 Vaccine ( season) 2025 10/24/2021, 04/22/2021, 03/25/2021 Influenza Vaccine (#1) 2025 08/01/2021 Zoster Vaccine (1 of 2) 2025 Procedures Procedure Name Priority Date/Time Associated Diagnosis Comments SCREENING MAMMOGRAM BILATERAL W DAMON Schedule Routine, Read Routine (OP Routine) 06/17/2023 1:29 PM CDT Encounter for screening mammogram for malignant neoplasm of breast from Last 3 Months or Most Recently Relevant to Health Maintenance Results * Screening Mammogram Bilateral [facility] Damon (06/17/2023 1:29 PM CDT) Anatomical Region Laterality Modality Breast Bilateral Mammography 06/17/2023 3:10 PM CDT Impressions 06/17/2023 3:10 PM CDT There is no mammographic evidence of malignancy. A 1 year screening mammogram is recommended. BI-RADS: 2 - Benign. The patient has been or will be contacted. The patient will be entered into a reminder system with a target due date of 1 year for her next mammogram. Electronically signed by: Stefano Smith M.D. Narrative 06/17/2023 3:10 PM CDT EXAMINATION: SCREENING MAMMOGRAM BILATERAL W DAMON ORDERING HEALTHCARE PROVIDER: PAULA DANIEL HISTORY: Routine screening mammography. COMPARISON: None available, baseline mammogram TECHNIQUE: CC and MLO views of the bilateral breasts were obtained with digital technique using breast tomosynthesis with C view. Computer aided detection was utilized. FINDINGS: DENSITY: There are scattered fibroglandular elements in the bilateral breasts. BREASTS: There are benign bilateral intramammary lymph nodes. There are no suspicious masses, suspicious calcifications, or other suspicious findings in either breast. Paula Daniel MD IMG MAMMO PROCEDURES Final Re sult from Last 3 Months or Most Recently Relevant to Health Maintenance Insurance [facility] Care Teams Filament Tester Relationship Specialty Start Date End Date Paula Daniel MD [address] [place] [address] [place] [id number] PCP - General Obstetrics and Gynecology 06/09/23
--- OUTSIDE RECORDS SUMMARY | 2025-09-18 11:37 | XMS_ITS | Data Portability ---
Author Organization [facility] Trent Anthony Address [address] [place] [address] Care Team Providers Care Home Specialist Name Role Phone PAULA NEFF [facility] Assessment No assessment recorded. Plan of Treatment Reminders Order Date Submit Date Provider Last Modified By Organization Details Last Modified Time Details Appointments None recorded. Lab influenza virus A + B + SARS-CoV-2 (COVID19) Ag panel, rapid IA, upper respiratory specimen 2023 024 [email or web address] In-Office Order, Internal Use Only DO Not Attach Compendium DO Not Attach Compendium, Do Not Delete/merge, [id number] 4 12:55:29 rapid strep group A, throat 2023 024 [email or web address] 6 In-Office Order, Internal Use Only DO Not Attach Compendium DO Not Attach Compendium, Do Not Delete/merge, [id number] 4 12:55:29 streptococc us group A, culture, throat 2023 024 [facility], [address] [facility], [facility], [place], [address], 4 06:37:14 HbA1c (hemoglobin A1c), blood 2023 024 [facility], [address] [facility], [facility], [place], [address], 4 08:38:24 lipid panel, serum 2023 024 [facility], [address] [facility], [facility], [place], [address], 4 08:38:21 CMP, serum or plasma 2023 [facility], [address] [place] [address] 2, [place], [address], 4 08:38:22 cytology report, thin prep, smear or scraping, cervical or vaginal 2023 024 [facility], [address] [place] [address] 2, [place], [address], 4 16:37:11 CBC 2023 [facility], [address] [place] [address], [place], [address], 4 08:38:25 vitamin D, 25-hydroxy, total, serum 2023 [facility], [address] [place] [address], [place], [address], 4 08:38:27 noninvasive colorectal cancer DNA + occult blood screening, QL, stool 2023 [facility], [address], [address], [place], [address], 4 18:02:27 pathology study - 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 A: cervical biopsy of 4 o'clock, B: cervical biopsy of 7 o'clock, C: ECC 2022 023 [facility], [address] [place] [address], [place], [address], 3 09:36:37 Referral None recorded. Procedures None recorded. Surgeries None recorded. Imaging home sleep study - suspected with STOP-BANG score 3, [place] Sleepiness Scale 11, BMI 32.4, uncontrolle d HTN, and cob sawyer headaches; neck circumferen ce 39 cm 2023 [facility], [address] [facility] , [place], [address], 5 10:35:06 MAMMO, screening, digital, bilateral 2023 [facility], [address] [facility] [place], [address], 4 10:07:20 Medication Orders irbesartan 300 mg tablet 2023 [place] [facility] [facility][id number], [address], [place], [place], [id number], 4 10:21:45 amoxicillin 500 mg tablet 2023 [place] [facility] #[id number], [address], [place], [place], [id number], 4 13:02:19 ergocalcife rol (vitamin D2) 1,250 mcg (50,000 unit) capsule 2023 [email or web address] 6 [facility] #54767, [address], [place], [place], [id number], 4 09:51:27 metoclopram dahlia 5 mg tablet 2023 024 [place] [facility]66237, [address], [place], [place], [id number], 4 12:31:59 rosuvastati n 20 mg tablet 2023 [place] [facility] #15030, [address], [place], [place], [id number], 4 12:33:03 aspirin 81 mg tablet,cyn yed release 2023 024 [facility] [facility] #[id number], [address], [place], [place], [id number], 12:33:03 irbesartan 150 mg tablet 2023 [facility] #[id number], [address], [place], [place], [id number], 12:32:00 chlorthalid one 25 mg tablet 2023 [facility] #83132, [address], [place], [place], [id number], 12:39:53 Patient TargetsNo targets recorded. Patient Instructions Encounter Date Encounter Id Patient Instructions Last Modified By Organization Details Last Modified Time 06/03/2023 [id number] colposcopy: what to expect at home [email or web address] Not available 06/03/2023 10:06:49 08/10/2024 [id number] A healthy lifestyle: care instructions [email or web address] Not available 08/10/2024 12:24:54 08/30/2024 [id number] strep throat: care instructions [email or web address] Not available 08/30/2024 12:55:29 Reason for Referral None Reported. Results Created Date Observation Date Name Description Value Unit Range Abnormal Flag Note LastModifiedBy Organization Detail LastModifiedTime 05/13/2005/13/2023 LIPID PANEL cholesterol, total 228.0 mg/dL 140.0- 200.0 above high normal Not Available [facility] [address] [place], [address], 05/13/2023 20:41:06 05/13/2005/13/2023 LIPID PANEL triglyceride s 156 mg/dL <=150 above high normal Not Available [facility] [address] [place], [address], 05/13/2023 20:41:06 05/13/2005/13/2023 LIPID PANEL HDL cholesterol 50.8 mg/dL 40.0-1 00.0 Not Available [facility] [address] [place], [address], 05/13/2023 20:41:06 05/13/20 23 05/13/2023 LIPID PANEL VLDL cholesterol noreen 31.20 mg/dL 5.00-4 0.00 Not Available [facility] [address] [place], [address], 05/13/2023 20:41:06 05/13/20 23 05/13/2023 LIPID PANEL LDL chol calc ([facility]) 149.1 mg/dL 0.0-99 .0 above high normal Not Available [facility] [address] [place], [address], 05/13/2023 20:41:06 05/13/20 23 05/13/2023 COMP. METAB OLIC PANEL (14) glucose 95 mg/dL 65-99 ANION GP 14.0 mmol/ L N OSMOL 282.0 mOsM/ L N REFER ENCE RANGE : 275.0 -301. 0 Not Available [facility] [address] [place], [address], 05/13/2023 20:41:06 05/13/20 23 05/13/2023 COMP. METAB OLIC PANEL (14) BUN 16 mg/dL 8-26 Not Available [facility] [address] [place], [address], 05/13/2023 20:41:06 05/13/20 23 05/13/2023 COMP. METAB OLIC PANEL (14) creatinine 0.79 mg/dL 0.50-1 .40 Not Available [facility] [address] [place], [address], 05/13/2023 20:41:06 05/13/20 23 05/13/2023 COMP. METAB OLIC PANEL (14) eGFR 93 mL/mi n/1.7 3 >=60 Not Available [facility] [address] [place], [address], 05/13/2023 20:41:06 05/13/20 23 05/13/2023 COMP. METAB OLIC PANEL (14) BUN/creatini ne ratio 20.0 Not Available [facility] [address] [place], [address], 05/13/2023 20:41:06 05/13/20 23 05/13/2023 COMP. METAB OLIC PANEL (14) sodium 141.0 mmol/ L 136.0- 144.0 Not Available [facility] [address] [place], [address], 05/13/2023 20:41:06 05/13/20 23 05/13/2023 COMP. METAB OLIC PANEL (14) potassium 4.4 mmol/ L 3.5-5. 3 Not Available [facility] [address] [place] [address], [address], 05/13/2023 20:41:06 05/13/20 23 05/13/2023 COMP. METAB OLIC PANEL (14) chloride 102 mmol/ l 101-11 1 Not Available [facility] [address] [place] [address], [address], 05/13/2023 20:41:06 05/13/20 23 05/13/2023 COMP. METAB OLIC PANEL (14) carbon dioxide, total 29.5 mmol/ L 21.0-3 2.0 Not Available [facility] [address] [place], [address], 05/13/2023 20:41:06 05/13/20 23 05/13/2023 COMP. METAB OLIC PANEL (14) calcium 9.4 mg/dL 8.2-10 .0 Not Available [facility] [address] [place], [address], 05/13/2023 20:41:06 05/13/20 23 05/13/2023 COMP. METAB OLIC PANEL (14) protein, total 7.4 g/dL 6.7-8. 2 Not Available [facility] [address] [place], [address], 05/13/2023 20:41:06 05/13/20 23 05/13/2023 COMP. METAB OLIC PANEL (14) albumin 4.8 g/dL 3.5-5. 5 Not Available [facility] [address] [place], [address], 05/13/2023 20:41:06 05/13/20 23 05/13/2023 COMP. METAB OLIC PANEL (14) globulin, total 2.6 g/dL 1.5-4. 5 Not Available [facility] [address] [place], [address], 05/13/2023 20:41:06 05/13/20 23 05/13/2023 COMP. METAB OLIC PANEL (14) A/G ratio 1.8 Not Available [facility] [address] [place], [address], 05/13/2023 20:41:06 05/13/20 23 05/13/2023 COMP. METAB OLIC PANEL (14) bilirubin, total 0.6 mg/dL 0.0-1. 2 Not Available [facility] [address] [place] [address], [address], 05/13/2023 20:41:06 05/13/20 23 05/13/2023 COMP. METAB OLIC PANEL (14) alkaline phosphatase 96.1 IU/L 42.0-1 21.0 Not Available [facility] [address] [place], [address], 05/13/2023 20:41:06 05/13/20 23 05/13/2023 COMP. METAB OLIC PANEL (14) AST (SGOT) 17.6 U/L 10.0-4 2.0 Not Available [facility] [address] [place] [address], [address], 05/13/2023 20:41:06 05/13/20 23 05/13/2023 COMP. METAB OLIC PANEL (14) ALT (SGPT) 16.8 U/L 10.0-6 0.0 Not Available [facility] [address] [place], [address], 05/13/2023 20:41:06 05/13/20 23 05/13/2023 CBC WITH DIFFE RENTI AL/PL ATELE T WBC 6.7 K/uL 3.4-10 .8 Not Available [facility] [address] [place], [address], 05/13/2023 20:41:10 05/13/20 23 05/13/2023 CBC WITH DIFFE RENTI AL/PL ATELE T RBC 4.8 M/uL 4.2-5. 4 Not Available [facility] [address] [place], [address], 05/13/2023 20:41:10 05/13/20 23 05/13/2023 CBC WITH DIFFE RENTI AL/PL ATELE T hemoglobin 14.1 g/dL 11.5-1 5.5 Not Available [facility] [address] [place], [address], 05/13/2023 20:41:10 05/13/20 23 05/13/2023 CBC WITH DIFFE RENTI AL/PL ATELE T hematocrit 44.7 % 36.0-4 8.0 Not Available [facility] [address] [place], [address], 05/13/2023 20:41:10 05/13/20 23 05/13/2023 CBC WITH DIFFE RENTI AL/PL ATELE T MCV 94 fL 80-95 Not Available [facility] [address] [place], [address], 05/13/2023 20:41:10 05/13/20 23 05/13/2023 CBC WITH DIFFE RENTI AL/PL ATELE T MCH 30 pg 27-32 Not Available [facility] [address] [place], [address], 05/13/2023 20:41:10 05/13/20 23 05/13/2023 CBC WITH DIFFE RENTI AL/PL ATELE T MCHC 32 g/dL 32-36 Not Available [facility] [address] [place], [address], 05/13/2023 20:41:10 05/13/20 23 05/13/2023 CBC WITH DIFFE RENTI AL/PL ATELE T RDW 13.3 % 11.5-1 4.5 Not Available [facility] [address] [place] [address], [address], 05/13/2023 20:41:10 05/13/20 23 05/13/2023 CBC WITH DIFFE RENTI AL/PL ATELE T platelets 237 K/uL 155-37 9 MPV 10.3 FL 8.9-1 2.7 N Not Available [facility] [address] [place], [address], 05/13/2023 20:41:10 05/13/20 23 05/13/2023 CBC WITH DIFFE RENTI AL/PL ATELE T neutrophils 55.7 % 40.0-7 4.0 Not Available [facility] [address] [place], [address], 05/13/2023 20:41:10 05/13/20 23 05/13/2023 CBC WITH DIFFE RENTI AL/PL ATELE T lymphs 36.9 % 14.0-4 6.0 Not Available [facility] [address] [place], [address], 05/13/2023 20:41:10 05/13/20 23 05/13/2023 CBC WITH DIFFE RENTI AL/PL ATELE T monocytes 6.1 % 4.0-12 .0 Not Available [facility] [address] [place], [address], 05/13/2023 20:41:10 05/13/20 23 05/13/2023 CBC WITH DIFFE RENTI AL/PL ATELE T eos 1 % 0-5 Not Available [facility] [address] [place], [address], 05/13/2023 20:41:10 05/13/20 23 05/13/2023 CBC WITH DIFFE RENTI AL/PL ATELE T basos 0.3 % 0.0-1. 0 Not Available [facility] [address] [place], [address], 05/13/2023 20:41:10 05/13/20 23 05/13/2023 CBC WITH DIFFE RENTI AL/PL ATELE T neutrophils (absolute) 3.7 K/uL 1.4-7. 0 Not Available [facility] [address] [place], [address], 05/13/2023 20:41:10 05/13/20 23 05/13/2023 CBC WITH DIFFE RENTI AL/PL ATELE T lymphs (absolute) 2.5 K/uL 0.7-3. 1 Not Available [facility] [address] [place], [address], 05/13/2023 20:41:10 05/13/20 23 05/13/2023 CBC WITH DIFFE RENTI AL/PL ATELE T monocytes(ab solute) 0.4 K/uL 0.1-0. 9 Not Available [facility] [address] [place], [address], 05/13/2023 20:41:10 05/13/20 23 05/13/2023 CBC WITH DIFFE RENTI AL/PL ATELE T eos (absolute) 0.1 K/uL 0.0-0. 4 Not Available [facility] [address] [place], [address], 05/13/2023 20:41:10 05/13/2005/13/2023 CBC WITH DIFFE RENTI AL/PL ATELE T baso (absolute) 0.0 K/uL 0.0-0. 3 Not Available [facility] [address] [place], [address], 05/13/2023 20:41:10 05/13/20 23 05/13/2023 CBC WITH DIFFE RENTI AL/PL ATELE T immature granulocytes 0.1 % Not Available [facility] [address] [place], [address], 05/13/2023 20:41:10 05/13/20 23 05/13/2023 CBC WITH DIFFE RENTI AL/PL ATELE T immature grans (abs) 0.0 K/uL Not Available [facility] [address] [place], [address], 05/13/2023 20:41:10 05/13/20 23 05/13/2023 CBC WITH DIFFE RENTI AL/PL ATELE T NRBC 0 % Not Available [facility] [address] [place], [address], 05/13/2023 20:41:10 05/13/20 23 05/14/2023 HEMOG LOBIN A1C hemoglobin A1C 5.8 % 4.8-5. 6 above high normal Predi abete s: 5.7 - 6.4 Diabe jana: >6.4 Glyce dayron contr ol for adult s with diabe jana: <7.0 Not Available [facility] ([facility]) [address] [facility], [place], [address], 05/14/2023 07:36:44 05/13/20 23 05/14/2023 VITAM IN D, 25-HY DROXY vitamin D, 25-hydroxy 15.3 NG/mL 30.0-1 00.0 below low normal Vitam in D defic iency has been defin ed by the Insti tute of Medic ine and an Endoc rine Socie ty pract ice guide line as a level of serum 25-OH vitam in D less than 20 ng/mL (1,2) . The Endoc rine Socie ty went on to furth er defin e vitam in D insuf ficie ncy as a level betwe en 21 and 29 ng/mL (2). 1. IOM (Inst itute of Medic ine). 2010. Dieta ry refer ence intak es for calci um and D. Anjum delgadillo [place]: The [facility] . 2. Russel dixon [place], Andrea andrews [place], Bell off-F errar i AHRTMANN, et al. Evalu ation , treat ment, and preve ntion of vitam in D defic iency : an Endoc rine Socie ty clini noreen pract ice guide line. JCEM. 2010; 96(7) :1911 -30. Not Available [facility] ([facility]) [address] [facility], [place], [address], 05/14/2023 07:36:45 05/13/2005/15/2023 IGP, APTIM A HPV, RFX 16/18 ,45 HPV aptima Positi ve negati ve abnormal This nucle ic acid ampli ficat ion test detec ts fourt een high- risk HPV types (16,1 8,31, 33,35 ,39,4 5,51, 52,56 ,58,5 9,66, 68) witho ut diffe renti ation . Not Available [facility] ([facility]) [address] [facility], [place], [address], 05/18/2023 20:35:55 05/13/2005/16/2023 IGP, APTIM A HPV, RFX 16/18 ,45 diagnosis: Commen t NEGAT ROSAURA FOR INTRA EPITH ELIAL LESIO N OR MALIG DAWNA . SHIFT IN ANA SUGGE STIVE OF BACTE RIAL VAGIN OSIS. Not Available [facility] ([facility]) [address] [place], [address], 05/18/2023 20:35:55 05/13/20 23 05/16/2023 IGP, APTIM A HPV, RFX 16/18 ,45 specimen adequacy: Tommie ahumada Satis facto ry for evalu ation . Endoc ervic al and/o r squam ous metap lasti c cells (endo cervi noreen compo nent) are prese nt. Not Available [facility] ([facility]) [address] [place], [address], 05/18/2023 20:35:55 05/13/20 23 05/16/2023 IGP, APTIM A HPV, RFX 16/18 ,45 clinician provided ICD10: Tommie ahumada Z12.4 Not Available [facility] ([facility]) [address] [place], [address], 05/18/2023 20:35:55 05/13/20 23 05/16/2023 IGP, APTIM A HPV, RFX 16/18 ,45 performed by: Ramesh Amin (ASCP ) Not Available [facility] ([facility]) [address] [place], [address], 05/18/2023 20:35:55 05/13/20 23 05/16/2023 IGP, APTIM A HPV, RFX 16/18 ,45 . . Not Available [facility] ([facility]) [address] [place], [address], 05/18/2023 20:35:55 05/13/20 23 05/16/2023 IGP, APTIM A HPV, RFX 16/18 ,45 note: Tommie ahumada The Pap smear is a scree heidi test desig melanie to aid in the detec tion of hipolito ligna nt and malig nant condi tions of the uteri ne cervi x. It is not a diagn ostic proce dure and shoul d not be used as the sole means of detec ting cervi noreen cance r. Both false -posi tive and false -nega tive repor ts do occur . Not Available [facility] ([facility]) [address] [facility], [place], [address], 05/18/2023 20:35:55 05/13/20 23 05/16/2023 IGP, APTIM A HPV, RFX 16/18 ,45 test methodology: Tommie ahumada This liqui d based ThinP rep(R ) pap test was scree melanie with the use of an image guide eloina malhotra Not Available [facility] ([facility]) [address] [place], [address], 05/18/2023 20:35:55 05/13/20 23 05/16/2023 IGP, APTIM A HPV, RFX 16/18 ,45 HPV genotype reflex Tommie t Crite lance met, see HPV Genot ype resul ts. Not Available [facility] ([facility]) [address] [place], [address], 05/18/2023 20:35:55 05/13/20 23 05/18/2023 HPV GENOT YPES 16/18 ,45 HPV genotype 16 Positi ve negati ve abnormal Not Available [facility] ([facility]) [address] [place], [address], 05/18/2023 20:35:56 05/13/20 23 05/18/2023 HPV GENOT YPES 16/18 ,45 HPV genotype 18,45 Negati ve negati ve Not Available [facility] ([facility]) [address] [place], [address], 05/18/2023 20:35:56 06/03/20 23 06/08/2023 PATHO LOGY ANNE MARIE ahumada Mater ial submi tted: . PART A: cervi x - CERVI NOREEN BIOPS Y @4:00 . Modif iers: 4:00 PART B: cervi x - CERVI NOREEN BIOPS Y @7:00 . Modif iers: 7:00 PART C: endoc ervix - ENDOC ERVIC AL CURET TAGE Not Available [facility] ([facility]) [address] [facility], [place], [address], 06/08/2023 09:36:37 06/03/20 23 06/08/2023 PATHO LOGY REPOR T . Commen t Clini bryan provi ded ICD-1 0: R87.8 10 Not Available [facility] ([facility]) [address] [facility], [place], [address], 06/08/2023 09:36:37 06/03/20 23 06/08/2023 PATHO LOGY REPOR T . Commen t Diagn osis: Part A: CERVI NOREEN BIOPS Y @4:00 : FOCAL KOILO CYTIC DANI ES SUGGE STIVE OF HUMAN PAPIL LOMAV IRUS (HPV) EFFEC T. TRANS FORMA TION ZONE NOT REPRE SENTE D. Part B: CERVI NOREEN BIOPS Y @7:00 : FOCAL KOILO CYTIC LOUISE ES SUGGE STIVE OF HUMAN PAPIL LOMAV IRUS (HPV) EFFEC T. TRANS FORMA TION ZONE NOT REPRE SENTE D. Part C: ENDOC ERVIC AL CURET TAGE: BENIG N SQUAM OUS MUCOS A TRANS FORMA TION ZONE NOT REPRE SENTE D. COMME NT: CLINI NOREEN CORRE LATIO N AND PATIE NT FOLLO WUP ARE RECOM BOY D. GXA 06/08 0859 Local Not Available [facility] ([facility]) [address] [facility], [place], [address], 06/08/2023 09:36:37 06/03/20 23 06/08/2023 PATHO LOGY REPOR T . Commen t Deidra pichardo d: . Jesus maharaj MD, Patho logis t Not Available [facility] ([facility]) [address] [facility], [place], [address], 06/08/2023 09:36:37 06/03/2006/08/2023 PATHO LOGY REPOR T . Commderrell t Gross descr iptio n: . 3 Conta iners , forma tonya-f illed , label ed with patie nt ident ifica tion. Part A: CERVI NOREEN BIOPS Y @4:00 : 1 FRAGM ENT(S ) OF ALICIA MUCOI D TISSU E MEASU RING 0.4 X 0.3 X 0.2 CM. SUBMI TTED RECEI BAO IN CASSE TTE(S ) A1. Part B: CERVI NOREEN BIOPS Y @7:00 : 1 FRAGM ENT(S ) OF ALICIA MUCOI D TISSU E MEASU RING 0.4 X 0.3 X 0.2 CM. SUBMI TTED RECEI BAO IN CASSE TTE(S ) B1. Part C: ENDOC ERVIC AL CURET TAGE: MULTI PLE FRAGM ENT(S ) OF SOFT MATER IAL, BLOOD , AND MUCUS MEASU RING 3.0 X 1.0 X 0.1 CM IN AGGRE GATE. FILTE RED AND SUBMI TTED IN CASSE TTE(S ) C1. THE SPECI MEN MAY NOT SURVI VE PROCE SSING . VAUGHN/K YE 06/04 1124 Local Not Available [facility] ([facility]) [address] [facility], [place], [address], 06/08/2023 09:36:37 06/03/2006/08/2023 PATHO LOGY REPOR T . Commen t Patho logis t provi ded ICD-1 0: B97.7 Not Available [facility] ([facility]) [address] [facility], [place], [address], 06/08/2023 09:36:37 06/03/2006/08/2023 PATHO LOGY ANNE MARIE Ahumada . Commderrell t CPT . 05369 1, 06371 2, [address] 3 Not Available [facility] ([facility]) [address] [facility], [place], [address], 06/08/2023 09:36:37 08/10/2008/11/2024 LIPID PANEL cholesterol, total 279 mg/dL 100-19 9 above high normal Not Available [facility] ([facility]) [address] [facility], [place], [address], 08/11/2024 08:38:21 08/10/2008/11/2024 LIPID PANEL triglyceride s 202 mg/dL 0-149 above high normal Not Available [facility] ([facility]) [address] [facility], [place], [address], 08/11/2024 08:38:21 08/10/2008/11/2024 LIPID PANEL HDL cholesterol 47 mg/dL >39 Not Available [facility] [address] [facility], [place], [address], 08/11/2024 08:38:21 08/10/2008/11/2024 LIPID PANEL VLDL cholesterol noreen 39 mg/dL 5-40 Not Available [facility]) [address] [place], [address], 08/11/2024 08:38:21 08/10/2008/11/2024 LIPID PANEL LDL chol calc ([facility]) 193 mg/dL 0-99 above high normal Not Available [facility] ([facility]) [address] [place], [address], 08/11/2024 08:38:21 08/10/2008/11/2024 LIPID PANEL LDL calc comment: COMMEN T Consi musa evalu ating for Famil ial Hyper jimmy stero lemia (FH), if clini lara indic ated. Not Available [facility] ([facility]) [address] [facility], [place], [address], 08/11/2024 08:38:21 08/10/2008/11/2024 COMP. METAB OLIC PANEL (14) glucose 88 mg/dL 70-99 Not Available [facility] ([facility]) [address] [facility], [place], [address], 08/11/2024 08:38:22 08/10/2008/11/2024 COMP. METAB OLIC PANEL (14) BUN 11 mg/dL 6-24 Not Available [facility] ([facility]) [address] [facility], [place], [address], 08/11/2024 08:38:22 08/10/2008/11/2024 COMP. METAB OLIC PANEL (14) creatinine 0.72 mg/dL 0.57-1 .00 Not Available [facility] ([facility]) [address] [facility], [place], [address], 08/11/2024 08:38:22 08/10/2008/11/2024 COMP. METAB OLIC PANEL (14) eGFR 102 mL/mi n/1.7 3 >59 Not Available [facility] ([facility]) [address] [facility], [place], [address], 08/11/2024 08:38:22 08/10/2008/11/2024 COMP. METAB OLIC PANEL (14) BUN/creatini ne ratio 15 9-23 Not Available [facility] ([facility]) [address] [place], [address], 08/11/2024 08:38:22 08/10/2008/11/2024 COMP. METAB OLIC PANEL (14) sodium 139 mmol/ L 134-14 4 Not Available [facility] ([facility]) [address] [facility] [place], [address], 08/11/2024 08:38:22 08/10/20 24 08/11/2024 COMP. METAB OLIC PANEL (14) potassium 4.5 mmol/ L 3.5-5. 2 Not Available [facility] ([facility]) [address] [facility] [place], [address], 08/11/2024 08:38:22 08/10/2008/11/2024 COMP. METAB OLIC PANEL (14) chloride 102 mmol/ L 96-106 Not Available [facility] ([facility]) [address] [place], [address], 08/11/2024 08:38:22 08/10/2008/11/2024 COMP. METAB OLIC PANEL (14) carbon dioxide, total 21 mmol/ L 20-29 Not Available [facility] ([facility]) [address] [place], [address], 08/11/2024 08:38:22 08/10/2008/11/2024 COMP. METAB OLIC PANEL (14) calcium 9.3 mg/dL 8.7-10 .2 Not Available [facility] ([facility]) [address] [place], [address], 08/11/2024 08:38:22 08/10/2008/11/2024 COMP. METAB OLIC PANEL (14) protein, total 7.2 g/dL 6.0-8. 5 Not Available [facility] ([facility]) [address] [place], [address], 08/11/2024 08:38:22 08/10/2008/11/2024 COMP. METAB OLIC PANEL (14) albumin 4.6 g/dL 3.9-4. 9 Not Available [facility] ([facility]) [address] [place], [address], 08/11/2024 08:38:22 08/10/20 24 08/11/2024 COMP. METAB OLIC PANEL (14) globulin, total 2.6 g/dL 1.5-4. 5 Not Available [facility] ([facility]) [address] [place], [address], 08/11/2024 08:38:22 08/10/20 24 08/11/2024 COMP. METAB OLIC PANEL (14) bilirubin, total 0.5 mg/dL 0.0-1. 2 Not Available [facility] ([facility]) [address] [facility] [place], [address], 08/11/2024 08:38:22 08/10/20 24 08/11/2024 COMP. METAB OLIC PANEL (14) alkaline phosphatase 92 IU/L 44-121 Not Available [facility] ([facility]) [address] [place], [address], 08/11/2024 08:38:22 08/10/20 24 08/11/2024 COMP. METAB OLIC PANEL (14) AST (SGOT) 22 IU/L 0-40 Not Available [facility] ([facility]) [address] [place], [address], 08/11/2024 08:38:22 08/10/2008/11/2024 COMP. METAB OLIC PANEL (14) ALT (SGPT) 20 IU/L 0-32 Not Available [facility] ([facility]) [address] [place], [address], 08/11/2024 08:38:22 08/10/2008/11/2024 HEMOG LOBIN A1C hemoglobin A1C 5.8 % 4.8-5. 6 above high normal Predi abete s: 5.7 - 6.4 Diabe jana: >6.4 Glyce dayron contr ol for adult s with diabe jana: <7.0 Not Available [facility] ([facility]) [address] [facility], [place], [address], 08/11/2024 08:38:24 08/10/2008/11/2024 CBC, PLATE LET, NO DIFFE RENTI AL WBC 7.8 x10e3 /uL 3.4-10 .8 Not Available [facility] ([facility]) [address] [facility], [place], [address], 08/11/2024 08:38:25 08/10/2008/11/2024 CBC, PLATE LET, NO DIFFE RENTI AL RBC 4.86 x10e6 /uL 3.77-5 .28 Not Available [facility] ([facility]) [address] [facility], [place], [address], 08/11/2024 08:38:25 08/10/2008/11/2024 CBC, PLATE LET, NO DIFFE RENTI AL hemoglobin 15.1 g/dL 11.1-1 5.9 Not Available [facility] ([facility]) [address] [facility], [place], [address], 08/11/2024 08:38:25 08/10/2008/11/2024 CBC, PLATE LET, NO DIFFE RENTI AL hematocrit 44.6 % 34.0-4 6.6 Not Available [facility] ([facility]) [address] [place], [address], 08/11/2024 08:38:25 08/10/2008/11/2024 CBC, PLATE LET, NO DIFFE RENTI AL MCV 92 fL 79-97 Not Available [facility] ([facility]) [address] [place], [address], 08/11/2024 08:38:25 08/10/2008/11/2024 CBC, PLATE LET, NO DIFFE RENTI AL MCH 31.1 pg 26.6-3 3.0 Not Available [facility] ([facility]) [address] [facility], [place], [address], 08/11/2024 08:38:25 08/10/2008/11/2024 CBC, PLATE LET, NO DIFFE RENTI AL MCHC 33.9 g/dL 31.5-3 5.7 Not Available [facility] ([facility]) [address] [facility], [place], [address], 08/11/2024 08:38:25 08/10/2008/11/2024 CBC, PLATE LET, NO DIFFE RENTI AL RDW 13.0 % 11.7-1 5.4 Not Available [facility] ([facility]) [address] [facility], [place], [address], 08/11/2024 08:38:25 08/10/2008/11/2024 CBC, PLATE LET, NO DIFFE RENTI AL platelets 226 x10e3 /uL 150-45 0 Not Available [facility] ([facility]) [address] [facility], [place], [address], 08/11/2024 08:38:25 08/10/2008/11/2024 VITAM IN D, 25-HY DROXY vitamin D, 25-hydroxy 11.8 NG/mL 30.0-1 00.0 below low normal Vitam in D defic iency has been defin ed by the Insti tute of Medic ine and an Endoc rine Socie ty pract ice guide line as a level of serum 25-OH vitam in D less than 20 ng/mL (1,2) . The Endoc rine Socie ty went on to furth er defin e vitam in D insuf ficie ncy as a level betwe en 21 and 29 ng/mL (2). 1. IOM (Inst itute of Medic ine). 2010. Dieta ry refer ence jessee es for calci um and D. Anjum delgadillo [place]: The Natio nal [facility] Press . 2. Holic k MF, Andrea ey [place], Bell off-F errar i HARTMANN, et al. Evalu ation , treat ment, and preve ntion of vitam in D defic iency : an Endoc rine Socie ty clini noreen pract ice guide line. JCEM. 2010; 96(7) :1911 -30. Not Available [facility] ([facility]) [address] [place], [address], 08/11/2024 08:38:27 08/10/2008/12/2024 IGP, APTIM A HPV, RFX 16/18 ,45 HPV aptima POSITI VE negati ve abnormal This nucle ic acid ampli ficat ion test detec ts fourt een high- risk HPV types (16,1 8,31, 33,35 ,39,4 5,51, 52,56 ,58,5 9,66, 68) witho ut diffe renti ation . Not Available [facility] ([facility]) [address] [facility], [place], [address], 08/17/2024 16:37:11 08/10/2008/17/2024 IGP, APTIM A HPV, RFX 16/18 ,45 diagnosis: COMMEN T abnormal EPITH ELIAL CELL ABNOR MALIT Y. ATYPI NOREEN SQUAM OUS CELLS OF UNDET ERMIN ED SIGNI FICAN CE (ASC- US). Not Available [facility] ([facility]) [address] [place], [address], 08/17/2024 16:37:11 08/10/2008/17/2024 IGP, APTIM A HPV, RFX 16/18 ,45 recommendati on: COMMEN T abnormal Sugge st follo w up as clini lara appro priat e. Not Available [facility] ([facility]) [address] [place], [address], 08/17/2024 16:37:11 10/23/20 24 08/17/2024 IGP, APTIM A HPV, RFX 16/18 ,45 specimen adequacy: TOMMIE Ahumada Satis facto ry for evalu ation . Endoc ervic al and/o r squam ous metap lasti c cells (endo cervi noreen compo nent) are prese nt. Not Available [facility] ([facility]) [address] [place], [address], 08/17/2024 16:37:11 08/10/20 24 08/17/2024 IGP, APTIM A HPV, RFX 16/18 ,45 clinician provided ICD10: TOMMIE Ahumada I10 Z00.0 0 R73.0 3 I65.2 9 R87.8 10 E55.9 Not Available [facility] ([facility]) [address] [place], [address], 08/17/2024 16:37:11 08/10/20 24 08/17/2024 IGP, APTIM A HPV, RFX 16/18 ,45 performed by: TOMMIE maharaj, Cytot echno logis t (ASCP ) Not Available [facility] ([facility]) [address] [place], [address], 08/17/2024 16:37:11 08/10/20 24 08/17/2024 IGP, APTIM A HPV, RFX 16/18 ,45 electronical ly signed by: TOMMIE maharaj MD, Patho logis t Not Available [facility] ([facility]) [address] [place], [address], 08/17/2024 16:37:11 08/10/20 24 08/17/2024 IGP, APTIM A HPV, RFX 16/18 ,45 . . Not Available [facility] ([facility]) [address] [place], [address], 08/17/2024 16:37:11 08/10/20 24 08/17/2024 IGP, APTIM A HPV, RFX 16/18 ,45 pathologist provided ICD10: TOMMIE Ahumada R87.6 10 Not Available [facility] ([facility]) [address] [place], [address], 08/17/2024 16:37:11 08/10/20 24 08/17/2024 IGP, APTIM A HPV, RFX 16/18 ,45 note: TOMMIE T The Pap smear is a scree heidi test desig melanie to aid in the detec tion of hipolito ligna nt and malig nant condi tions of the uteri ne cervi x. It is not a diagn ostic proce dure and shoul d not be used as the sole means of detec ting cervi noreen cance r. Both false -posi tive and false -nega tive repor ts do occur . Not Available [facility] ([facility]) [address] [place], [address], 08/17/2024 16:37:11 08/10/20 24 08/17/2024 IGP, APTIM A HPV, RFX 16/18 ,45 test methodology: TOMMIE Ahumada This liqui d based ThinP rep(R ) pap test was scree melanie with the use of an image guide eloina malhotra Not Available [facility] ([facility]) [address] [place], [address], 08/17/2024 16:37:11 08/10/20 24 08/17/2024 IGP, APTIM A HPV, RFX 16/18 ,45 HPV genotype reflex COMMEN T Crite lance not met, HPV Genot ype not perfo rmed. Not Available [facility] ([facility]) [address] [place], [address], 08/17/2024 16:37:11 08/30/20 24 09/02/2024 BETA STREP GP A CULTU RE beta strep gp A culture NEGATI VE Refer ence Range : Negat rosaura Not Available [facility] ([facility]) [address] [place], [address], 09/02/2024 06:37:13 08/30/20 24 08/30/2024 influ william virus A + B + SARS- CoV-2 (COVI D19) Ag panel , rapid IA, upper respi rator y speci men Flu A negati ve Not Available In-Office Order Internal Use Only DO Not Attach Compendium DO Not Attach Compendium, Do Not Delete/merge, [id number] 08/30/2024 12:22:44 08/30/20 24 08/30/2024 influ william virus A + B + SARS- CoV-2 (COVI D19) Ag panel , rapid IA, upper respi rator y speci men Flu B negati ve Not Available In-Office Order Internal Use Only DO Not Attach Compendium DO Not Attach Compendium, Do Not Delete/merge, [id number] 08/30/2024 12:22:44 08/30/20 24 08/30/2024 influ william virus A + B + SARS- CoV-2 (COVI D19) Ag panel , rapid IA, upper respi rator y speci men Rapid SARS CoV 2 Ag, QL IA, respiratory specimen negati ve Not Available In-Office Order Internal Use Only DO Not Attach Compendium DO Not Attach Compendium, Do Not Delete/merge, [id number] 08/30/2024 12:22:44 08/30/20 24 08/30/2024 rapid strep group A, throa t Strep negati ve Not Available In-Office Order Internal Use Only DO Not Attach Compendium DO Not Attach Compendium, Do Not Delete/merge, [id number] 08/30/2024 12:23:00 09/02/20 24 09/02/2024 COLOG UARD cologuard result reportable NEGATI VE negati ve normal NEGAT ROSAURA TEST RESUL T. A negat rosaura Colog uard resul t indic ates a low likel ihood that a color ectal cance r (CRC) or advan vivienne adeno ma (jorge omato us polyp s with more advan vivienne pre-m align ant featu res) is prese nt. The chanc e that a perso n with a negat rosaura Colog uard test has a color ectal cance r is less than 1 in 1500 (nega tive predi ctive value >99.9 %) or has an advan vivienne adeno ma is less than 5.3% (nega tive predi ctive value 94.7% ). These data are based on a prosp ectiv e cross -sect ional study of 10,00 0 indiv idual s at [facility] risk for color ectal cance r who were scree melanie with both Colog uard and colon oscop y. (Vine john Henry et al, N Engl J Med 2014; 370(1 4):12 86-12 97) The ashleigh l value (refe rence range ) for this assay is negat rosaura. COLOG UARD RE-SC [facility] RECOM MENDA TION: Perio dic color ectal cance r scree heidi is an impor tant part of preve ntive healt hcare for asymp tomat ic indiv idual s at [facility] ge risk for color ectal cance r. Follo wing a negat rosaura Colog uard resul t, the Ameri can Cance r Socie ty and U.S. Multi -Soci ety Task Force scree ehidi guide lines recom mend a Colog uard re-sc twin queen inter lyndon of 3 years . Refer ences : Ameri can Cance r Socie ty Guide line for Color ectal Cance r Scree heidi: https ://doug w.can cer.o rg/ca ncer/ colon -rect al-ca ncer/ detec tion- diagn osis- stagi ng/ac s-rec ommen datio ns.ht ml.; Vignesh RIZZO, Ivanna duvall CR, Zenobia marcus JK, Color ectal Cance r Scree heidi: Recom menda tions for Physi cians and Patie nts from the U.S. Multi -Soci ety Task Force on Color ectal Cance r Scree heidi , Am J Gastr oente rolog y 2017; 112:1 016-1 030. TEST DESCR IPTIO N: Shiro site algor ithmi c esteban sis of stool DNA-b iomar kers with hemog lobin immun oassa y. Quant itati ve value s of indiv idual bioma rkers are not repor table and are not assoc iated with ind idual bioma rker resul t refer ence range s. Colog uard is inten ded for color ectal cance r scree heidi of adult s of eithe r sex, 45 years or older , who are at [facility] for color ectal cance r (CRC) . Colog uard has been appro bao for use by the U.S. FDA. The perfo rmanc e of Colog uard was estab lishe d in a cross secti onal study of [facility] adult s aged 50-84 . Colog uard perfo rmanc e in patie nts ages 45 to 49 years was estim ated by anil-g chalino esteban sis of near- age group s. Colon oscop ies perfo rmed for a posit rosaura resul t may find as the most clini lara signi fican t lesio n: color ectal cance r [4.0% ], advan vivienne adeno ma (incl uding sessi le candi jermaine polyp s great er than or equal to 1cm diame ter) [20%] or non- advan vivienne adeno ma [31%] ; or no color ectal neopl giorgio [45%] . These estim ates are deriv ed from a prosp ectiv e cross -sect ional scree heidi study of 10,00 0 indiv idual s at [facility] risk for color ectal cance r who were scree melanie with both Colog uard and colon oscop y. (Ines Leach al, N Engl J Med 2014; 370(1 4):12 86-12 97.) Colog uard may produ ce a false negat rosaura or false posit rosaura resul t (no color ectal cance r or preca ncero us polyp prese nt at colon oscop y follo w up). A negat rosaura Colog uard test resul t does not guara ntee the absen ce of CRC or advan vivienne adeno ma (pre- cance r). The curre nt Colog uard scree heidi inter lyndon is every 3 years . (Amer ican Cance r Socie ty and U.S. Multi -Soci ety Task Force ). Colog uard perfo rmanc e data in a 10,00 0 patie nt pivot al study using colon oscop y as the refer ence metho d can be acces sed at the follo wing locat ion: www.e xactl abs.c om/re sults . Addit ional descr iptio n of the Colog uard test proce ss, warni ngs and preca ution s can be found at www.c emanuelogu giulia.c om. Not Available [employer] [address], [place], [address], 09/09/2024 18:02:27 06/17/20 23 06/17/2023 MAMMO , scree heidi, digit al, bilat eral No observ ation record ed. [facility] [address] , [place], [address], 06/18/2023 12:45:24 06/17/20 23 06/17/2023 , meg x, carot id arter y No observ ation record ed. [facility] () [address] [facility] , [place], [address], 06/19/2023 14:45:35 Result Notes None recorded. Problems Name Problem SNOMED Code Status Onset Date Resolution Date Notes Provider Name and Address Organization Details Recorded Time Essential hypertension 63347073 Active 2022 PAULA NEFF MD Attn: Esa montana,[address] [facility], [place], [address], [facility] - [facility] 3 11:57:40 Body mass index 30+ - obesity 251905615 Active 2022 PAULA NEFF MD Attn: Esa montana,[address] [facility], [place], [address], [facility] - [place] 3 11:57:39 Nicotine dependence 78629351 Active 2022 PAULA NEFF MD Attn: Esa montana,[address] [facility], [place], [address], [place] - [facility] 3 11:58:18 Carotid atherosclerosi s 124668137 Active 2022 PAULA NEFF MD Attn: Torijennyfer montana,[address] [facility], [place], [address], [place] - [facility] 3 11:58:16 Human papillomavirus deoxyribonucle ic acid detected, high risk on cervical specimen 475337228 Active 2022 type 16 PAULA NEFF MD Attn: Torijennyfer montana,[address] [facility], [place], [address], [place] - [facility] 3 22:10:52 Vitamin D deficiency 35894913 Active 2022 PAULA NEFF MD Attn: Torijennyfer montana,[address] [facility], [place], [address], [place] - [facility] 3 22:11:14 Prediabetes 521502404 Active 2022 PAULA NEFF MD Attn: Torijennyfer montana,[address] [facility], [place], [address], [place] - [facility] 3 22:11:33 Migraine without aura 54819242 Active 2023 PAULA NEFF MD Attn: Torijennyfer montana,[address] [facility], [place], [address], [place] - [facility] 4 12:35:49 Problem Notes None recorded. Procedures Surgical History Date Name Laterality Status Provider Name and Address Organization Details Recorded Time 3 Colposcopy completed PAULA NEFF MD Attn: Accounting,[address] [facility], [place], [address], [place] - [facility] 06/03/2023 11:39:28 1 delivery completed Gillian Quintana MA [place] - [facility] 05/07/2023 16:03:12 1 Tubal Ligation completed LAWANDA Zambrano - [facility] 05/07/2023 16:02:26 9 delivery completed LAWANDA Zambrano - [facility] 05/07/2023 16:03:23 08/199 5 delivery completed LAWANDA Zambrano - [facility] 05/07/2023 16:02:57 Imaging Results None recorded. Procedure Notes None recorded. Medical Equipment None Reported. Allergies Allergen ID Allergen Name Allergen Category Reaction Reaction Severity Criticality Documentation Date Start Date Code Code System Note Provider Name and Address Organization Details Recorded Time 978936 naproxen medicatio n hives Not available Not available 05/07/2023 7258 RxNorm LAWANDA Zambrano, [place] - [facility] 3 15:54:28 447973 codeine medicatio n hives Not available Not available 05/07/2023 2670 RxNorm LAWANDA Zambrano, [place] - [facility] 3 15:54:38 028251 atorvasta tin medicatio n hives Not available Not available 05/13/20232022 52386 RxNorm hives on neck, chest , arms, and ears PAULA NEFF MD Attn: Esa montana,[address] [place], [address] [place] [address] - [facility] 3 10:45:52 Medications Name Sig Start Date Stop Date Status Note LastModified by Organization Details LastModified Time amoxicilli n 500 mg capsule TAKE 1 CAPSULE THREE TIMES DAILY FOR 7 DAYS UNTIL ALL TAKEN 08/10 completed Not Available Not Available Not Available atorvastat in 40 mg tablet TAKE 1 TABLET BY MOUTH EVERY DAY 05/13 completed not taking Not Available Not Available Not Available promethazi ne-DM 6.25 mg-15 mg/5 mL oral syrup TAKE 5 ML BY MOUTH EVERY 4 TO 6 HOURS NEEDED FOR COUGH 05/07 completed Not Available Not Available Not Available azithromyc in 250 mg tablet 05/07 completed Not Available Not Available Not Available ibuprofen 800 mg tablet TAKE 1 TABLET BY MOUTH THREE TIMES DAILY NEEDED FOR PAIN active Not Available Not Available No t Available Lidocaine Viscous 2 % mucosal solution SWISH AND SPIT 5 ML BY MOUTH TWICE DAILY NEEDED FOR PAIN 09/07 completed Not Available Not Available Not Available prednisone 20 mg tablet TAKE 1 TABLET BY MOUTH TWICE DAILY 08/10 completed Not Available Not Available Not Available penicillin V potassium 500 mg tablet TAKE 1 TABLET BY MOUTH EVERY 12 HOURS FOR 10 DAYS 08/10 completed Not Available Not Available Not Available chlorthali done 25 mg tablet TAKE 1 TABLET BY MOUTH EVERY DAY FOR HIGH BLOOD PRESSURE 08/24 completed Not Available Not Available Not Available nicotine 10 mg inhalation cartridge Stop cigarett e use at start of tx. Inhale 6-16 cartridg es per day by using frequent continuo us puffing for 20 minutes for each cartridg e. Use for up to 12 weeks, then taper use over 12 weeks. 05/13 completed Not Available Not Available Not Available aspirin 81 mg tablet,del ayed release Take 1 tablet every day by oral route. 2023 active Not Available Not Available Not Avai lable amoxicilli n 500 mg tablet TAKE 1 TABLET BY MOUTH TWICE DAILY FOR 10 DAYS active Not Available Not Available No t Available amoxicilli n 875 mg tablet TAKE 1 TABLET BY MOUTH EVERY 12 HOURS 08/10 completed Not Available Not Available Not Available metoclopra mide 5 mg tablet TAKE 1 TABLET BY MOUTH EVERY 6 TO 8 HOURS NEEDED FOR NAUSEA active Not Available Not Available No t Available benzonatat e 100 mg capsule 05/07 completed Not Available Not Available Not Available oseltamivi r 75 mg capsule TAKE 1 CAPSULE BY MOUTH EVERY 12 HOURS FOR 5 DAYS 05/07 completed Not Available Not Available Not Available losartan 25 mg tablet TAKE 1 TABLET BY MOUTH EVERY DAY 08/10 completed Not Available Not Available Not Available nicotine 21 mg/24 hr daily transderma l patch Apply 1 patch every day by transder mal route. 08/10 completed Not Available Not Available Not Available ergocalcif selene (vitamin D2) 1,250 mcg (50,000 unit) capsule Take 1 capsule every week by oral route. active Not Available Not Available No t Available irbesartan 150 mg tablet TAKE 1 TABLET BY MOUTH EVERY DAY FOR HIGH BLOOD PRESSURE active Not Available Not Available No t Available ibuprofen 600 mg tablet active Not Available Not Available Not Available methylpred nisolone 4 mg tablets in a dose pack 05/07 completed Not Available Not Available Not Available albuterol sulfate HFA 90 mcg/actuat ion aerosol inhaler INHALE 2 PUFFS BY MOUTH FOUR TIMES DAILY NEEDED FOR SHORTNES S OF BREATH OR WHEEZING active Not Available Not Available No t Available irbesartan 300 mg tablet Take 1 tablet every day by oral route, for high blood pressure . active Not Available Not Available No t Available amoxicilli n 875 mg-potassi um clavulanat e 125 mg tablet TAKE 1 TABLET BY MOUTH EVERY 12 HOURS FOR 7 DAYS 08/10 completed Not Available Not Available Not Available rosuvastat in 20 mg tablet TAKE 1 TABLET BY MOUTH EVERY DAY FOR HIGH CHOLESTE ROL active Not Available Not Available No t Available Tylenol active otc Not Available Not Avail able Not Available [facility] D 120 mg tablet,ext ended release TAKE 1 TABLET BY MOUTH EVERY 12 HOURS NEEDED FOR NASAL CONGESTI ON 05/07 completed Not Available Not Available Not Available Vitals Date Recorded Body height Body mass index (BMI) Body weight Body temperature Oxygen saturation Heart rate Systolic And Diastolic Provider Name and Address Organization Details Last Updated DateTime 3 160.02 cm 31.4 kg/m2 56044.9 g 98.1 [degF] 93 % 73 /min 152/79 mm[Hg] Chelle Brock MA [facility] 3 09:15:50 Date Recorded Body weight Body mass index (BMI) Body height Oxygen saturation Heart rate Respiratory rate Body temperature Systolic And Diastolic Provider Name and Address Organization Details Last Updated DateTime 4 29576.4 g 32.4 kg/m2 160.02 cm 95 % 85 /min 16 /min 98.5 [degF] 163/90 mm[Hg] Chelle Fuentes MA [facility] 4 11:42:30 Date Recorded Body height Body mass index (BMI) Body weight Oxygen saturation Heart rate Body temperature Respiratory rate Systolic And Diastolic Provider Name and Address Organization Details Last Updated DateTime 4 160.02 cm 32.4 kg/m2 62884.4 g 93 % 70 /min 98.5 [degF] 16 /min 153/92 mm[Hg] [facility] Fuentes [facility] 4 12:04:23 Date Recorded Body height Body mass index (BMI) Body weight Oxygen saturation Heart rate Body temperature Systolic And Diastolic Provider Name and Address Organization Details Last Updated DateTime 4 160.02 cm 25 kg/m2 14881.5 2 g 96 % 93 /min 98.3 [degF] 116/73 mm[Hg] Chelle Fuentes MA ND - [facility] 4 12:24:08 Date Recorded Body height Body mass index (BMI) Body weight Oxygen saturation Heart rate Body temperature Systolic And Diastolic Systolic And Diastolic Provider Name and Address Organization Details Last Updated DateTime 4 160.02 cm 32.4 kg/m2 86687.4 g 95 % 65 /min 97.8 [degF] 162/91 mm[Hg] 149/88 mm[Hg] Gillian Quintana MA ND - [facility] 4 10:09:31 Social History Question Answer Notes LastModified by Organizat ion Details LastModified Time Tobacco Smoking Status Current Every Day Smoker Gillian Quintana MA null, [facility] 05/07/2023 16:00:47 Are You Blind Or Do You Have Difficulty Seeing? No Glasses Information not available 05/13/2023 What Is Your Level Of Caffeine Consumption? Heavy Coffee And Soda Information not available 05/07/2023 In The 14 Days Before Symptom Onset, Have You Had Close Contact With A Laboratory-confir med COVID-19 While That Case Was Ill? No Information not available 05/07/2023 In The 14 Days Before Symptom Onset, Have You Had Close Contact With A Person Who Is Under Investigation For COVID-19 While That Person Was Ill? No Information not available 05/07/2023 Have You Been To An Area Known To Be High Risk For COVID-19? No Information not available 05/07/2023 Are You Deaf Or Do You Have Serious Difficulty Hearing? No Information not available 05/07/2023 What Type Of Diet Are You Following? REGULAR Information not available 05/07/2023 Are There Any Guns Present In Your Home? No Information not available 05/07/2023 What Was The Date Of Your Most Recent Tobacco Screening? 09/07/2024 Information not available 09/07/2024 How Many Children Do You Have? 3 Information not available 05/07/2023 What Is Your Current Pack Years? 20-29packyea rs Information not available 05/07/2023 What Is Your Relationship Status? Information not available 05/07/2023 Do You Use Your Seat Belt Or Car Seat Routinely? Yes Information not available 05/07/2023 Are You Sexually Active? No 05/07/23 Not Sexually Active Since 2017 Information not available 05/07/2023 Do You Have Smoke And Carbon Monoxide Detectors In Your Home? Yes Information not available 05/07/2023 At What Age Did You Start Smoking Tobacco? 18 Information not available 05/07/2023 Are You Passively Exposed To Smoke? Yes Information no t available 05/07/2023 How Much Tobacco Do You Smoke? 0.5 PPD Information not available 05/13/2023 Do You Use Sunscreen Routinely? No Information not available 05/07/2023 Has Tobacco Cessation Counseling Been Provided? Yes Information not available 05/07/2023 On What Date Was Tobacco Cessation Counseling Provided? 09/07/2024 Information not available 09/07/2024 How Many Years Have You Smoked Tobacco? 29 Information not available 05/07/2023 Sex: Female Functional Status Question Answer Note LastModified by Organizat ion Details LastModified Time Do you use any illicit or recreational drugs? No Information not available 05/07/2023 Do you or have you ever used any other forms of tobacco or nicotine? No Information not available 05/07/2023 What is your level of alcohol consumption? None Information not available 05/07/2023 Are you currently employed? Yes Information not available 05/07/2023 Are you able to care for yourself independently? 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 None Information not available 05/07/2023 Mental Status Question Answer Note LastModified by Organization D etails LastModified Time Do you feel stressed (tense, restless, nervous, or anxious, or unable to sleep at night)? [id number] Information not available 05/07/2023 Family History Relationship Description Onset Age of this Age Resolved Age Notes LastModified by Organization Details LastModified Time Mother Hypertensive disorder [email or web address] Not available 05/07 15:59:29 Mother Diabetes mellitus [email or web address] Not available 05/07 15:59:45 Paternal Aunt Diabetes mellitus [email or web address] Not available 05/07 15:59:45 Medical History Condition Response Coronary Artery Disease N Other N High Blood Pressure N Atrial Fibrillation N Thyroid Problems N Kidney or Bladder Problems N GI Problems N Depression N COPD N Blood Clots N Have you had a mammogram in the last yea r? N Skin Problems N Eating Disorder N Anemia N Heart Attack ([place]) N Anxiety Disorder N Diabetes N Muscle, Joint, or Bone Problems N Seizures/Epilepsy N Acid Reflux (GERD) Y Cancer N Stroke N Asthma N Allergies Y ADHD N Substance Abuse N High Cholesterol N Hepatitis N Liver Disease N Schizophrenia N Headaches Y Heart Failure N Osteoporosis N Gynecological History Statement/Question Response If Post Menopausal, Age at Menopause 46 Date of Last Mammogram Date of LMP On BCP's at Conception? Y Menses Monthly N Date of Last Pap Smear Age at Menarche 10 Current Control Method Tubal Ligat ion Age at First Child 19 LMP Approximate Obstetrics History GPAL:G 5 P 3 0 2 3 Type Value Multiple Births 0 Full Term 3 Induced 0 Spontaneous 2 Premature 0 Living 3 Ectopics 0 Total 5 Immunizations Vaccine Type Date Status Note Provider Nam e and Address Organization Details Recorded Time COVID-19, mRNA, LNP-S, PF, 100 mcg/0.5mL dose or 50 mcg/0.25mL dose 10/24/2021 completed PAULA NEFF MD Attn: [address] [place], [address], [facility] 08/10/2024 12:37:05 COVID-19, mRNA, LNP-S, PF, 100 mcg/0.5mL dose or 50 mcg/0.25mL dose 03/25/2021 completed PAULA NEFF MD Attn: [address] [place], [address], [place] - [facility] 08/10/2024 12:37:05 COVID-19, mRNA, LNP-S, PF, 100 mcg/0.5mL dose or 50 mcg/0.25mL dose 04/22/2021 completed PAULA NEFF MD Attn: Accounting[address] [facility], [place], [address], [place] [facility] 08/10/2024 12:37:05 Influenza, split virus, quadrivalent, PF 08/01/2021 completed PAULA NEFF MD Attn: Accounting[address] [facility], [place], [address], [place] - [facility] 08/10/2024 12:37:05 Past Encounters Encounter ID Performer Location Encounter Start Date Encounter Closed Date Diagnosis/Indication Diagnosis SNOMED-CT Code Diagnosis ICD10 Code Diagnosis IMO Codes Diagnosis Note [id number] PAULA NEFF MD [facility] (METALLURGICAL ENGINEERING TECHNICIAN) [address] [place] [address] 05/07/2023 15:44:05 05/19/2023 09:18:07 Carotid atherosclerosis 549266221 I65.29 - Continue home aspirin 81 mg daily- Will also treat with high-inten sity statin (atorvasta tin 40 mg daily) to stabilize existing plaque- f/u lipid panel- f/u carotid artery Dopplers to evaluate severity of atheroscle rotic disease Adult [facility] th examination 291463958 Z00.00 - Reviewed risks for cardiovasc ular disease, infection, and cancer; ordered screening tests as appropriat e Screening for malignant neoplasm of cervix 454002162 Z12.4 - Due for co-testing ; to be performed at a future visit Screening for malignant neoplasm of breast 151711560 Z12.31 - Due for screening mammogram; ordered today Screening for malignant neoplasm of colon 648628147 Z12.11 - Due for colorectal cancer screening; recommende d colonoscop y Elevated blood-pressure reading without diagnosis of hypertension 642737816 R03.0 - Noted on exam today; if persistent ly elevated, will start antihypert ensive Body mass index 30+ - obesity 096354368 Z68.31 - Discussed dietary changes to prevent progressio n of carotid artery disease and reduce further risk of heart attack and stroke- f/u A1c to evaluate for diabetes Nicotine dependence 5629 4008 F17.200 - Discussed smoking cessation; patient interested in nicotine replacemen t with patch and as-needed inhaler for cravings [id number] MD Kalen LAMAR (METALLURGICAL ENGINEERING TECHNICIAN) [address] [place] [address] 05/13/2023 09:51:30 05/14/2023 09:37:12 Screening for malignant neoplasm of cervix 461624200 Z12.4 - Due for co-testing ; collected today Allergic r eaction to drug 698534359 T46.6X5A - Hives after taking atorvastat in; discontinu ed medication and consulted PharmD regarding trial of alternativ e statin - recommende d switching to rosuvastat in Essential hypertension 37709523 I10 - BP persistent ly elevated- Given instructio ns about measuring BP at home and goal of SBP <140, DBP <90- Will start losartan 25 mg daily; if BP persistent ly elevated with home checks, return to clinic in 2-4 weeks for medication adjustment Body mass index 30+ - obesity 070165500 Z68.31 - Discussed low-salt diet Carotid atherosclerosis 431501478 I65.29 - Allergic reaction to atorvastat in; switching to rosuvastat in 20 mg daily per recommenda tion of PharmD [id number] MD Jacinta LAMARhalto (METALLURGICAL ENGINEERING TECHNICIAN) [address] [place] [address] 06/03/2023 09:07:56 06/04/2023 16:19:05 Human papillomavirus deoxyribonucleic acid detected, high risk on cervical specimen 343930100 R87.810 - 05/13/23: 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 Discussed post-proce dure return precaution s including abnormal bleeding, developmen t of fevers/chi lls. Advised patient to avoid douching, tampons, and intercours e for 1 week post-proce dure Nicotine dependence 5629 4008 F17.200 - Encouraged smoking cessation to help improve immune system function and clearance of HPV infection [id number] MD Kalen LAMAR (METALLURGICAL ENGINEERING TECHNICIAN) [address] [place] [address] 08/10/2024 11:28:18 08/10/2024 12:43:44 Adult health examination 961164444 Z00.00 - Reviewed risks for cardiovasc ular disease, infection, and cancer; ordered screening tests as appropriat e Screening for malignant neoplasm of breast 265534284 Z12.31 - Due for screening mammogram; ordered today Human arcadio llomavirus deoxyribonucleic acid detected, high risk on cervical specimen 057647707 R87.810 - 05/13/23: 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 HPV changes on path.- 08/10/24: Repeat co-testing performed. Essential hypertension 91415752 I10 - BP persistent ly elevated- Given instructio ns about measuring BP at home and goal of SBP <140, DBP <90- Will start losartan 25 mg daily; if BP persistent ly elevated with home checks, return to clinic in 2-4 weeks for medication adjustment Carotid atherosclerosis 611091770 I65.29 - Allergic reaction to atorvastat in; switching to rosuvastat in 20 mg daily per recommenda tion of PharmD Prediabetes 086517205 R7 3.03 - A1c 5.8% (04/2023)- f/u A1c Vitamin D deficiency 347 20852 E55.9 - vitamin D level 15.3 (04/2023)- f/u vitamin D level Screening for malignant neoplasm of colon 105315146 Z12.11 - Due for colorectal cancer screening; recommende d colonoscop y- Patient prefers stool-base d testing. Cologuard ordered. Obesity 362682811 E66.81 1 Z68.32 - Provided handout on healthy lifestyle- f/u ALT, lipid panel, A1c -- at increased risk of metabolic dysfunctio n-associat ed steatotic liver disease (MASLD), high cholestero l, and diabetes for BMI >30- f/u vitamin D -- at increased risk of vitamin D deficiency for BMI >30 Migraine without aura 56 990390 G43.009 - Symptoms consistent with chronic migraine without aura- Recommende d metoclopra mide with NSAID or Tylenol as needed for acute headache- Consider also cob sawyer headaches being due to suspected MARCIA; see management below Sleep apnea 56329215 G47 .30 - Suspect sleep apnea with daytime sleepiness , [place] Sleepiness Scale score of 11, BMI 32, STOP-BANG score 3, uncontroll ed HTN- Will obtain home sleep study and treat as indicated by results [id number] MD Kalen LAMAR (METALLURGICAL ENGINEERING TECHNICIAN) [address] [place] [address] 08/24/2024 11:45:51 09/08/2024 13:40:04 Essential hypertension 48916304 I10 - Chronic and uncontroll ed- Patient self-disco ntinued irbesartan and chlorthali done- Recommend using irbesartan only for time being. 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 HPV changes on path.- 08/10/24: ASCUS with +hr-HPV; typing not done. Based on prior results, [facility] recommenda tion is repeat HPV-based testing in 1 year.- 08/24/24: Reviewed results with patient. Will repeat co-testing in July 2025. [id number] MD Kalen LAMAR (METALLURGICAL ENGINEERING TECHNICIAN) [address] [place] [address] 08/30/2024 12:12:18 09/01/2024 15:10:00 Acute pharyngitis 779070204 J02.9 - Reviewed negative rapid flu A/B, COVID, and rapid Strep results with patient- Patient informed of results and plan to send throat culture- Based on symptoms (fevers, tender LAD, tonsillar exudate), will treat empiricall y with amoxicilli n 500 mg BID x10d. Will adjust treatment pending throat culture results.- Discussed when to seek emergency care [id number] MD Kalen LAMAR (METALLURGICAL ENGINEERING TECHNICIAN) [address] [place] [address] 09/07/2024 09:32:55 09/12/2024 11:42:00 Essential hypertension 43194438 I10 - Chronic and uncontroll ed- Increase irbesartan to 300 mg daily. RTC in 2 weeks for video visit to review home BP log. Health Concerns Section Related Observation LastModified by Organization Detai ls LastModified Time None Recorded Concern Status LastModified by Organization Details LastModified Time None Recorded Advance Directives Directive None Recorded Payers Insurance Date Sequence Insurance Name Policy Number Policy Dave Covered Member ID Dave Member ID Guarantor Name 08/10/2024 1 [place] [employer] Esha Claire [id number] Esha Claire 06/03/2023 SLIDING FEE SCHEDULE - DISCOUNT Esha Claire 08/10/2024 1 [facility] - DOS ON OR AFTER 21 (MEDICAID REPLACEMENT - HMO) Esha Claire [id number] Esha Claire 06/03/2023 1 *SELF PAY* april Claire 08/10/2024 [facility] DEPT Esha Claire [facility] Esha Claire 10/30/2024 1 [facility] - DOS ON OR AFTER 21 (MEDICAID REPLACEMENT - HMO) Esha Claire [id number] Esha Claire Notes Date Note Type Note Provider Name and Address Organization Details Recorded Time 06/03/2023 text/html ROS as noted in the HPI Colposcopy- Normal Pap with +hr-HPV test that is positive for type 16- Patient is a current smoker- History of tubal ligation; no concern for PAULA NEFF MD Attn: [address] , [place], [address], [place] [facility] 06/03/2023 11:40:23 08/10/2024 text/html ROS as noted in the [facility] Annual wellnessConcerns today- Has been having bad headaches for the past 5 or so weeks. Wakes up with a headache. Sometimes severe enough that she is nauseated and has vomited once. Pain across forehead and head feels like it's going to explode. No blurry vision. Will sometimes have lights in vision with or without headache. With headaches, will be sensitive to light and sound.- Sometimes headaches improve after taking Tylenol first thing in the morning. Other times, lasts throughout the day.- No headache right now or for past 4 days.- No prior history of migraines.- Drinks 2 cups of coffee and drinks Pepsi all day long. Has cut back on coffee recently; sometimes will drink 1 cup instead of 2. Cardiovascular risk- HTN: On losartan.- DM2: Prediabetes (2022).- HLD: On rosuvastatin, aspirin.- Personal history of [place], CVA? No.- Family history of [place], CVA? FHx in [place] and CVA on both sides of the family (aunts and uncles) but not parents and not siblings.- No chest pain, shortness of breath, unilateral weakness, slurred words. Infection risk- Prior testing for HIV? Yes - reports negative test- Prior testing for HepC? Yes - reports negative test- History of STIs? +hr-HPV- Declines other STI testing Plans for - S/p tubal ligation in 2000- Menopause in 2021 Cancer screenings- Breast cancer: Benign mammo (2022)- Cervical cancer: +hr-HPV (2022) with HPV effect on cervical biopsy.- Colon cancer: No known FHx.- Lung cancer: Current smoker -- 1 ppd x 30 years (age 18 - present). Has tried quitting cold turkey but could not last more than a couple days. Tried Chantix about 10 years ago and had horrible dreams. STOP BANG Questionnaire- Snoring? - Do you snore loudly? yes (+1)- Tired? - Do you often feel tired, fatigued, or sleepy during the day? yes (+1)- Observed? - Has anyone observed you stop breathing during sleep? no (+0)- Pressure? - Do you have (or are you being treated for) high blood pressure? yes (+1)- BMI: 3 5kg/m^2 (+0)- Age: [age] yo (+0)- Neck circumference (measured around Benítez apple): 4 0 cm (+0) (39 cm)- Gender: F (+0)Total: +3Score interpretation: 3 to 4 - Intermediate risk of OSAorhigh risk of MARCIA if: 1) [x] Yes to 2 or more STOP questions,AND 2) [] male gender OR [] BMI> 35kg/m^2 OR [] neck circumference at least 16 inches / 40 cm PAULA NEFF MD Attn: Accounting, [place], [address], [facility] 08/10/2024 12:37:50 08/24/2024 text/html ROS as noted in the HPI HTN- Did not feel myself or almost faint while on BP medicine. Had some back aches that also resolved after stopping HTN medication about 3 days ago.- BP at home in 110s/60s while on medication- BP in the 140s/80s while off of medication at home PAULA NEFF MD Attn: Accounting, [place], [address], [facility] 09/07/2024 09:51:40 08/30/2024 text/html ROS as noted in the HPI URI symptoms- Developed symptoms yesterday- Has fevers (Tmax 103.9F), chills, cough, ear pain (initially left only but now seems to be both), headaches- Noticed swollen tonsils and white spots on tonsil- Has painful lymph node on the right- No nausea, vomiting, diarrhea- 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 Otherwise no known sick contacts. PAULA NEFF MD Attn: [address] [place], [address], [facility] 08/30/2024 13:17:07 09/07/2024 text/html ROS as noted in the HPI HTN- Doing well with irbesartan only- No side effects like when taking both irbesartan and chlorthalidone- No chest pain, shortness of breath, headaches- States she is more stressed today because she has upcoming dental work being done PAULA NEFF MD Attn: Accounting[address] [facility], [place], [address], [facility] 09/07/2024 10:22:26 OBGyn Episode Ob Episode Information Episode Created Date Number of Fetuses Patient Bloodtype Patient rh Status Prepregnancy Weight lbs Domestic Partner Domestic Partner Phone Father Name Monument Carver Status 05/07/20 1 CLOSED Fetus Data First Name Last Name Admitted to NICU Weight (g) Sex Living Outcome Pediatric Complications Fetus ID Race Codes Race Delivery Type F Full Term [id number] Andrés Calculation Initial Andrés Date Initial Exam Date Initial Exam Provider Initial Ultrasound Date Last Menstrual Period Date Ultra Sound Weeks Gestation 0 Eighteen To Twenty Week Andrés Update Ultra Sound Date Fundal Height At Umbil Quickening Date Ultra Sound Latest Weeks Gestation Final Andrés Confirmed By Final Andrés Confirmed Date Final Andrés Date Ultra Sound Latest Days Gestation 0 0 Menstrual History Last Menstrual Date Menses Monthly On Bcp Conception Prior Menses Frequency Hcg Plus Date Menarche Onset Age Delivery Information Delivery Date Delivery Type Labor Anesthesia Weeks Gestation Incision Type Labor Labor Length Hrs Delivered By Post Complications Tubal Sterilization Discharge Date Comments 9 Discharge Information Feeding Method Contraceptive Method Maternal HG B and HCT Levels Ob Episode Information Episode Created Date Number of Fetuses Patient Bloodtype Patient rh Status Prepregnancy Weight lbs Domestic Partner Domestic Partner Phone Father Name Monument Carver Status 05/07/20 23 1 CLOSED Fetus Data First Name Last Name Admitted to NICU Weight (g) Sex Living Outcome Pediatric Complications Fetus ID Race Codes Race Delivery Type , Spontane ous [id number] Andrés Calculation Initial Andrés Date Initial Exam Date Initial Exam Provider Initial Ultrasound Date Last Menstrual Period Date Ultra Sound Weeks Gestation 0 Eighteen To Twenty Week Andrés Update Ultra Sound Date Fundal Height At Umbil Quickening Date Ultra Sound Latest Weeks Gestation Final Andrés Confirmed By Final Andrés Confirmed Date Final Andrés Date Ultra Sound Latest Days Gestation 0 0 Menstrual History Last Menstrual Date Menses Monthly On Bcp Conception Prior Menses Frequency Hcg Plus Date Menarche Onset Age Delivery Information Delivery Date Delivery Type Labor Anesthesia Weeks Gestation Incision Type Labor Labor Length Hrs Delivered By Post Complications Tubal Sterilization Discharge Date Comments 5 Discharge Information Feeding Method Contraceptive Method Maternal HG B and HCT Levels Ob Episode Information Episode Created Date Number of Fetuses Patient Bloodtype Patient rh Status Prepregnancy Weight lbs Domestic Partner Domestic Partner Phone Father Name Monument Carver Status 05/07/20 23 1 CLOSED Fetus Data First Name Last Name Admitted to NICU Weight (g) Sex Living Outcome Pediatric Complications Fetus ID Race Codes Race Delivery Type F Full Term [id number] Andrés Calculation Initial Andrés Date Initial Exam Date Initial Exam Provider Initial Ultrasound Date Last Menstrual Period Date Ultra Sound Weeks Gestation 0 Eighteen To Twenty Week Andrés Update Ultra Sound Date Fundal Height At Umbil Quickening Date Ultra Sound Latest Weeks Gestation Final Andrés Confirmed By Final Andrés Confirmed Date Final Andrés Date Ultra Sound Latest Days Gestation 0 0 Menstrual History Last Menstrual Date Menses Monthly On Bcp Conception Prior Menses Frequency Hcg Plus Date Menarche Onset Age Delivery Information Delivery Date Delivery Type Labor Anesthesia Weeks Gestation Incision Type Labor Labor Length Hrs Delivered By Post Complications Tubal Sterilization Discharge Date Comments 5 Discharge Information Feeding Method Contraceptive Method Maternal HG B and HCT Levels Ob Episode Information Episode Created Date Number of Fetuses Patient Bloodtype Patient rh Status Prepregnancy Weight lbs Domestic Partner Domestic Partner Phone Father Name Monument Carver Status 05/07/20 1 CLOSED Fetus Data First Name Last Name Admitted to NICU Weight (g) Sex Living Outcome Pediatric Complications Fetus ID Race Codes Race Delivery Type F Full Term [id number] Andrés Calculation Initial Andrés Date Initial Exam Date Initial Exam Provider Initial Ultrasound Date Last Menstrual Period Date Ultra Sound Weeks Gestation 0 Eighteen To Twenty Week Andrés Update Ultra Sound Date Fundal Height At Umbil Quickening Date Ultra Sound Latest Weeks Gestation Final Andrés Confirmed By Final Andrés Confirmed Date Final Andrés Date Ultra Sound Latest Days Gestation 0 0 Menstrual History Last Menstrual Date Menses Monthly On Bcp Conception Prior Menses Frequency Hcg Plus Date Menarche Onset Age Delivery Information Delivery Date Delivery Type Labor Anesthesia Weeks Gestation Incision Type Labor Labor Length Hrs Delivered By Post Complications Tubal Sterilization Discharge Date Comments 1 Discharge Information Feeding Method Contraceptive Method Maternal HG B and HCT Levels Ob Episode Information Episode Created Date Number of Fetuses Patient Bloodtype Patient rh Status Prepregnancy Weight lbs Domestic Partner Domestic Partner Phone Father Name Monument Carver Status 05/07/20 23 1 CLOSED Fetus Data First Name Last Name Admitted to NICU Weight (g) Sex Living Outcome Pediatric Complications Fetus ID Race Codes Race Delivery Type , Spontane ous [id number] Andrés Calculation Initial Andrés Date Initial Exam Date Initial Exam Provider Initial Ultrasound Date Last Menstrual Period Date Ultra Sound Weeks Gestation 0 Eighteen To Twenty Week Andrés Update Ultra Sound Date Fundal Height At Umbil Quickening Date Ultra Sound Latest Weeks Gestation Final Andrés Confirmed By Final Andrés Confirmed Date Final Andrés Date Ultra Sound Latest Days Gestation 0 0 Menstrual History Last Menstrual Date Menses Monthly On Bcp Conception Prior Menses Frequency Hcg Plus Date Menarche Onset Age Delivery Information Delivery Date Delivery Type Labor Anesthesia Weeks Gestation Incision Type Labor Labor Length Hrs Delivered By Post Complications Tubal Sterilization Discharge Date Comments Discharge Information Feeding Method Contraceptive Method Maternal HG B and HCT Levels
== END 2025-09-18 11:52 | disposition home or self-care (01) ==
PROVIDERS: Emergency Provider Registered Nurse; PCP Family Medicine
DX: R05.1 Acute cough (principal); J06.9 Acute upper respiratory infection, unspecified; F17.210 Nicotine dependence, cigarettes, uncomplicated; I10 Essential (primary) hypertension; E78.5 Hyperlipidemia, unspecified
CPT/HCPCS: 71046; 99213; G0463